=== PATIENT | female | born 2000 | race African-American/Black ===

== ENCOUNTER 2020-08-08 09:09 | Emergency (ER) | payer MEDICAID, SELFPAY ==
[2020-08-08 09:14] VITALS: BP 150/96; PULSE 117; RESP 14; TEMP 36.9; O2SAT 100
--- NOTE | 2020-08-08 09:19 | ED.GENADULT ---
HPI - General Adult General Chief complaint: Skin/Abscess/Foreign Body Stated complaint: itchy and red skin Time Seen by Provider: 08/08/20 09:19 Source: patient and RN notes reviewed Mode of arrival: ambulatory Limitations: no limitations History of Present Illness HPI narrative: 20-year-old -Congolese female presents with complains of diffused irregular skin color and darker and itching rash for the past 14 days. No treatment. Denies new changes in personal hygiene products or laundry detergent. No new foods or medications. No swelling, burning, bleeding, or drainage. Denies fever, chills, headaches, weakness, fatigue, myalgia, facial swelling, or tongue swelling. No rhinorrhea and congestion. Denies dry cough. Denies chest pain or dyspnea. Denies nausea, vomiting, or abdominal pain. Tolerating po intake well. Urine output within normal limits LMP 08/01/20. Remains active. The patient reports she have not been diagnosed with COVID-19. The patient reports she is not waiting for the results of a COVID-19 lab test. The patient reports she do not have fever, chills, or fatigue. The patient reports she do not have a worsening cough or shortness of breath. Denies chest pain. The patient reports she do not have any rhinorrhea, congestion, sore throat, loss of taste, nausea, vomiting, abdominal pain, and diarrheax. Tolerating po intake well. Denies recent traveling. Denies concerns for COVID-19 or exposures been home with limited outdoor exposure except for essential household needs, work, and return home. At this time, patient is not suspected of having COVID-19. Some parts of this dictation were generated by voice recognition software and may contain typographical and/or grammatical inaccuracies. Related Data Allergies Allergy/AdvReac Type Severity Reaction Status Date / Time No Known Allergies Allergy Verified 08/08/20 09:16 Review of Systems Review of Systems: Narrative: CONSTITUTIONAL: Denies fever, chills, sweats. EYES: Denies visual changes, redness, discharge. ENT: Denies rhinorrhea, congestion, sore throat, otalgia. CARDIOVASCULAR: Denies chest pain, palpitations, edema. RESPIRATORY: Denies dyspnea, wheezing, cough. GASTROINTESTINAL: Denies abdominal pain, nausea, vomiting, diarrhea. GENITOURINARY: Denies dysuria, hematuria, abnormal discharge. SKIN: Complains of diffused irregular skin color and darker and itching rash. MUSCULOSKELETAL: Denies acute back pain, joint pain, or myalgia. NEUROLOGIC: Denies numbness or focal weakness. PSYCHIATRIC: Denies anxiety or depression. All other systems reviewed are negative, except as documented in HPI and below. [facility] Past Medical History Medical History (Updated 08/09/20 @ 00:00 by Shila Helms) No significant past medical history Surgical History Surgical History (Updated 08/08/20 @ 09:39 by FABIEN Merchant) No significant past surgical history Family History Family History (Updated 08/08/20 @ 09:39 by FABIEN Merchant) Father Asthma Mother , Complications related to pneumonia No problems noted. Social History Social History (Updated 08/08/20 @ 09:40 by FABIEN Merchant) Smoking status: Former smoker Tobacco type: cigarettes Second hand tobacco smoke exposure: Yes Smoking end date: 04/12/20 Alcohol intake: current Substance use: never Living arrangements: with family Occupation/Education: occupation Gender identity (if verbalized by the patient): Female Comments At time of signature, agree with nurse past medical, surgical, social, and family history. There is no relevant family history pertinent to the presenting complaint. Exam Narrative: Exam Narrative: GENERAL: This is a well-nourished, well-developed patient, in no apparent distress. Talks in full sentences and ambulates with steady gait without dyspnea. HEAD: normocephalic, atraumatic. EYES: PERRL. Sclera clear/white. Visi
[2020-08-08 09:44] VITALS: BP 130/80
== END 2020-08-08 09:44 | disposition home or self-care (01) ==
PROVIDERS: Emergency Provider Nurse Practitioner Family
DX: L42 Pityriasis rosea (principal); F17.210 Nicotine dependence, cigarettes, uncomplicated
CPT/HCPCS: 99213; G0463

== ENCOUNTER 2022-01-20 11:57 | Emergency (ER) | payer OTHER, SELFPAY ==
--- NOTE | 2022-01-20 12:07 | ED.WOUNDLAC ---
HPI - Wound/Laceration General Chief Complaint: Wound/Laceration Stated Complaint: deep cut on left thumb Time Seen by Provider: 01/20/22 12:08 Source: patient, RN notes reviewed and old records reviewed Mode of arrival: ambulatory Limitations: no limitations History of Present Illness HPI narrative: 21 year old female who presents to [facility] care with complaints of laceration to the tip of her left thumb which occurred last night around 2100 when she was slicing tomatoes. Patient has 1cm curved laceration to the tip of her left thumb. Patient reports that she cleansed her thumb with liquid dial soap and rinsed well with water she then cleansed with peroxide and applied bandage to her left thumb, no active bleeding noted. Patient reports that she is college student and that her immunizations are up to date including her tetanus. Patient denies any fever or chills or sweats. Onset (ago): hour(s) (at 2100 last night) Location: other Extremity Location: Left: hand (left thumb) Place: home Context: accidental Treatments prior to arrival: bandage Related Data Home Medications Medication Instructions Recorded Confirmed norgestimate-ethinyl estradiol 1 tablet PO DAILY 01/20/22 01/20/22 [Tri-Sprintec (28)] Allergies Allergy/AdvReac Type Severity Reaction Status Date / Time No Known Allergies Allergy Verified 01/20/22 12:10 Review of Systems Review of Systems: CONSTITUTIONAL: Denies fever, chills, or sweats. EYES: Denies visual changes, redness, or discharge. ENT: Denies rhinorrhea, congestion, sore throat, or otalgia. CARDIOVASCULAR: Denies chest pain, palpitations, or edema. RESPIRATORY: Denies cough or dyspnea. GASTROINTESTINAL: Denies abdominal pain, nausea, vomiting, or diarrhea. GENITOURINARY: Denies dysuria or hematuria. SKIN: Denies rash or itching.1cm curved laceration to the tip of her left thumb MUSCULOSKELETAL: Denies back pain, joint pain, or myalgia. NEUROLOGIC: Denies headache, numbness, or weakness. PSYCHIATRIC: Denies anxiety or depression. All systems reviewed & are unremarkable except as noted in HPI and below PMFSH Past Medical History Medical History No significant past medical history Surgical History Surgical History No significant past surgical history Family History Family History Father Asthma Mother , Complications related to pneumonia No problems noted. Social History Social History Smoking status: Former smoker Tobacco type: cigarettes Second hand tobacco smoke exposure: Yes Smoking end date: 04/12/20 Alcohol intake: current Substance use: never Gender identity (if verbalized by the patient): Female Comments At time of signature, agree with nursing past medical, surgical, social and family history. There is no relevant family history pertinent to the presenting complaint Exam Narrative: GENERAL: Well-appearing, well-nourished, and in no acute distress. HEAD: Normocephalic, atraumatic. EYES: PERRLA and EOMI. ENT: Nares clear, no rhinorrhea or epistaxis. Mucous membranes moist.TM's normal with good light reflex, throat pink with no lesions or exudates or any tonsil enlargement. NECK: Supple. no lymphadenopathy CHEST: Clear to auscultation. No respiratory distress. HEART: Regular rate and rhythm. No murmur heard. Normal peripheral pulses. ABDOMEN: Soft, nontender, nondistended, normal active bowel sounds. EXTREMITIES: Normal range of motion. No edema. SKIN: Warm, dry, no rash. NEURO: No focal deficits. Alert and oriented x3. Course Course Level of Care: Express Care Visit Procedures Laceration left thumb tip: Date: 01/20/22 Time: 12:20 Site: hand (left thumb) Side (If applicable): left Size (c
[2022-01-20 12:11] VITALS: BP 141/108; PULSE 112; RESP 18; TEMP 36.6; O2SAT 99
[2022-01-20 12:14] VITALS: BP 141/108; PULSE 112; RESP 18; TEMP 36.6; O2SAT 99
[2022-01-20 12:45] VITALS: BP 142/100; PULSE 98; RESP 16
== END 2022-01-20 12:48 | disposition home or self-care (01) ==
PROVIDERS: Emergency Provider Registered Nurse
DX: S61.012A Laceration without foreign body of left thumb without damage to nail, initial encounter (principal); W26.0XXA Contact with knife, initial encounter; Y93.G1 Activity, food preparation and clean up; Z87.891 Personal history of nicotine dependence
CPT/HCPCS: 12001; 99213; G0463

== ENCOUNTER 2024-04-18 10:21 | Emergency (ER) | payer OTHER, SELFPAY ==
[2024-04-18] VITALS (12 sets, daily range): BP systolic 146–184; BP diastolic 109–126; PULSE 87–137; RESP 11–20; TEMP 36.7; O2SAT 99–100
--- NOTE | ~2024-04-18 | CT_ITS ---
EXAMINATION: CT abdomen pelvis w con DATE: 04/18/2024 11:57 INDICATION: Right upper quadrant abdominal pain. Constipation. TECHNIQUE: Computed tomography (CT) of the abdomen and pelvis was performed with 100 mL Omnipaque 350 intravenous contrast. Automated exposure control and iterative reconstruction technique were employe d. The dose-length product was 338.98 mGy-cm. COMPARISON: None. FINDINGS: The visualized portions of the lung bases demonstrate mild atelectasis. No pleural effusion . The heart size is normal. No pericardial effusion. There is a 9 mm hyperdense mass in right hepatic lobe, likely a hemangioma or focal nodular hyperplasia. The gallbladder and spleen are normal. There is fat stranding around the head of the pancreas and second portion of the duodenum. The adrenal gla nds and kidneys are normal. The bladder is distended. There are no dilated loops of bowel. The append ix is normal. There are no pathologically enlarged lymph nodes. There is physiologic fluid in the pel vis. There is mild lumbar spondylosis. IMPRESSION: 1. Fat stranding around the head of the pancreas and second portion of the duodenum, consistent with pancreatitis versus duodenitis. Reviewed, dictated and finalized at location A. IMPRESSION: 1. Fat stranding around the head of the pancreas and second portion of the duod enum, consistent with pancreatitis versus duodenitis.
--- NOTE | 2024-04-18 10:45 | ED.ABDPAIN ---
HPI - Abdominal Pain General Chief Complaint: Abdominal Pain Stated Complaint: abdominal pain, constipation Time Seen by Provider: 04/18/24 10:34 Source: patient Mode of arrival: ambulatory Limitations: no limitations History of Present Illness HPI narrative: Jennifer is a 23-year-old female patient presenting to the emergency room today with complaints of right upper quadrant abdominal pain with constipation. States she has not had a bowel movement 3 days. Symptoms started 3 days ago. She denies any associated nausea or vomiting. Pain is sharp in the right upper quadrant rating it 4/5. She denies any urinary symptoms. No fever no chills no body aches. She is sexually active. Last menstrual period was March 21. Related Data Allergies Allergy/AdvReac Type Severity Reaction Status Date / Time No Known Allergies Allergy Verified 04/18/24 13:57 Review of Systems Review of Systems: Pertinent positives per HPI. Patient denies any fever, chills, rash, headache, visual changes, dizziness, cough, runny nose, sore throat, shortness of breath, chest pain, palpitations, nausea, vomiting, diarrhea, constipation, or any urinary issues. PMFSH Past Medical History Medical History No significant past medical history Surgical History Surgical History No significant past surgical history Family History Family History Father Asthma Mother , Complications related to pneumonia No problems noted. Social History Social History Smoking status: Former smoker Tobacco type: cigarettes Second hand tobacco smoke exposure: Yes Smoking end date: 04/12/20 Alcohol intake: current Substance use: never Living arrangements: with family Occupation/Education: occupation Gender identity (if verbalized by the patient): Female Comments At the time of my signature, I reviewed and agree with the nursing past medical, surgical, social, and family history. There is no relevant family history pertinent to the patient complaint. Exam Narrative: General: Well-developed, well nourished, in no apparent distress. Head: Normocephalic, atraumatic. Cardio: Regular rate and rhythm, s1 and s2 normal, no murmur appreciated. Resp: Clear to auscultation bilaterally, no rhonchi, rales, wheezing or rubs. Abdomen: Soft, pliable, bowel sounds present in all quadrants, RUQ tender to palpation, no organomegly, no CVAT tenderness. Course Course Emergency Course: Portions of this record may have been created with voice recognition software. Vital Signs Vital signs: Vital Signs Temperature 36.7 C 04/18/24 10:27 Pulse Rate 137 H 04/18/24 10:27 Respiratory Rate 20 04/18/24 10:27 Blood Pressure 178/124 H 04/18/24 10:27 Pulse Oximetry 99 04/18/24 10:27 Oxygen Delivery Room Air 04/18/24 10:27 Temperature 36.7 C 04/18/24 10:27 Pulse Rate 87 04/18/24 14:31 Respiratory Rate 16 04/18/24 14:31 Blood Pressure 146/112 H 04/18/24 14:31 Pulse Oximetry 100 04/18/24 14:31 Oxygen Delivery Room Air 04/18/24 10:27 Vital signs reviewed MDM - Abdominal Pain MDM Narrative Medical decision making narrative: At the time of visit patient is resting comfortably on the exam table. Patient appears to be nontoxic. Labs: CBC shows white blood cell count of 15.2, H&H of 12.9 and 38.9, platelet counts 232, chemistry shows sodium of 138, potassium 3.0, chloride 105,BUN is 6, carbon dioxide 22, GFR is greater than 60, glucose is 112, AST is 51, ALT is 57, lipase is 238, urinalysis shows 1+ blood with a trace of leukocytes with no bacteria seen Diagnostics: CT shows pancreatitis versus duodenitis Medications given: Morphine 4 mg IV, Zofran 4mg IV, NS 1 liter. 5 mg o
[2024-04-18] MEDS: ONDANSETRON INJ 4 MG/2 ML VIAL IV PUSH (10:56)
[2024-04-18] MEDS: MORPHINE SULFATE (*CRX) 4 MG/ML INJ IV PUSH (10:56)
[2024-04-18] MEDS: SODIUM CHLORIDE 0.9% IV 1,000 ML 999 ML IV CONT (10:57)
[2024-04-18 11:11] LABS: Basophils Percent Auto 0.3 % (0.2-1.2); Eosinophils Absolute Auto 0.2 K/mm3 (0-0.3); Eosinophils Percent Auto 1.1 % (0-4.4); Hematocrit 38.9 % (37.0-47.0); Hemoglobin 12.9 g/dL (12.0-15.0); Immature Granulocyte Absolute 0.03 K/mm3 (0.00-0.031); Immature Granulocyte Percent A 0.2 % (0-0.5); Lymphocytes Absolute Auto 4.33 K/mm3 (0.9-3.2); Lymphocytes Percent Auto 28.5 % (18.3-44.2); Mean Corpuscular HGB Conc 33.2 g/dl (32-36); Mean Corpuscular Hemoglobin 33.3 pg (26-34); Mean Corpuscular Volume 100.5 fl (80-100); Mean Platelet Volume 11.5 fl (7.4-10.4); Monocytes Absolute Auto 1.2 K/mm3 (0.1-0.6); Neutrophils Absolute Auto 9.4 K/mm3 (1.3-6.7); Neutrophils Percent Auto 61.9 % (45.5-73.1); Platelet Count Result 232 k/mm3 (150-375); Red Blood Count 3.87 M/mm3 (4.2-5.4); Red Cell Distribution Width 12.4 % (11.5-14.5); White Blood Count 15.2 K/mm3 (4.5-10.0)
[2024-04-18 11:18] LABS: Appearance Urine Clear (Clear); Bacteria Urine None Seen /hpf; Bilirubin Urine Negative (Negative); Blood Urine 1+ (Negative); Color Urine Yellow (Yellow); Glucose Urine UA Negative (Negative); Ketones Urine Negative (Negative); Leukocyte Esterase Ur Trace LEU/UL (Negative); Nitrate Urine Negative (Negative); Non Pathogenic Casts 0-2; Protein Urine Negative (Negative); RBC Urine 0-2 /hpf (0-2); Specific Grav Ur 1.007 (1.001-1.035); Squamous Epithelial Cell Urine Occasional /hpf (Few); Urobilinogen Urine 0.2 mg/dL (<2.0); WBC Urine 0-5 /hpf (0-3)
[2024-04-18 11:23] LABS: Add Urine Microscopic? YES
[2024-04-18 11:35] LABS: Alanine Aminotransferase 57 U/L (6-35); Alkaline Phosphatase 74 U/L (38-126); Anion Gap 11 mmol/L (4-12); Aspartate Amino Transferase 51 U/L (14-36); Bilirubin,Total 1.3 mg/dL (0.2-1.3); Blood Urea Nitrogen 6 mg/dL (7-17); Calcium 9.4 mg/dL (8.4-10.2); Carbon Dioxide 22 mmol/L (22-30); Chloride 105 mmol/L (98-107); Estimated CRCL calculation 91 ml/min; Estimated Glomerular Filt Rate > 60; Glucose 112 mg/dL (65-110); Lipase 238 U/L (23-300); Sodium 138 mmol/L (137-145)
[2024-04-18] MEDS: METOPROLOL TARTRATE INJ 5 MG/5 ML VIAL IV PUSH (13:50)
== END 2024-04-18 14:45 | disposition home or self-care (01) ==
PROVIDERS: Emergency Medicine; Emergency Provider Nurse Practitioner Family
DX: R10.11 Right upper quadrant pain (principal); K29.80 Duodenitis without bleeding; I10 Essential (primary) hypertension
CPT/HCPCS: 36415; 74177; 80053; 81001; 81025; 83690; 85025; 96361; 96374; 96375; 99284; J2270; J2405; J7030; Q9967

== ENCOUNTER 2024-07-07 10:42 | Emergency (ER) | payer OTHER, SELFPAY ==
--- NOTE | ~2024-07-07 | CT_ITS ---
EXAMINATION: CT abdomen pelvis w con DATE: 07/07/2024 14:24 INDICATION: Abdominal pain. TECHNIQUE: Computed tomography (CT) of the abdomen and pelvis was performed with 100 mL Omnipaque 350 intravenous contrast. Automated exposure control and iterative reconstruction technique were employe d. The dose-length product was 270.34 mGy-cm. COMPARISON: CT abdomen and pelvis 04/18/24 FINDINGS: The visualized portions of the lung bases are clear without pneumonia or pleural effusion. The heart is normal. No pericardial effusion. The liver, gallbladder, spleen, are normal. There is fa t stranding around the duodenum and head of the pancreas. There are areas of low attenuation in the h ead of the pancreas. The adrenal glands and kidneys are normal. There are no dilated loops of bowel. The appendix is normal. There is a small volume of pelvic ascites. Peritoneal enhancement suggests an exudate. There are no pathologically enlarged lymph nodes. There is mild thoracolumbar spondylosis. IMPRESSION: 1. Acute necrotic pancreatitis. 2. Small volume of pelvic ascites. Reviewed, dictated and finalized at location A.
[2024-07-07 10:54] VITALS: BP 163/127; PULSE 124; RESP 16; TEMP 36.9; O2SAT 100
[2024-07-07 12:49] VITALS: BP 161/125; PULSE 125; RESP 16; O2SAT 99
--- NOTE | 2024-07-07 12:52 | ECG_ITS ---
Test Date: 2024-07-07 13:08:57 Measurements Intervals [place] Rate: 110 P: 67 AR: 126 QRS: 40 QRSD: 74 T: 24 QT: 316 QTc: 428 Interpretive Statements SINUS TACHYCARDIA LEFT ATRIAL ENLARGEMENT [-0.15mV P-WAVE IN V1/V2] No previous ECG available for comparison Electronically Signed On 07-08-2024 15:25:49 CDT by Milan Gonzáles M.D.
[2024-07-07 12:59] LABS: BEDSIDEPREGUCG Negative
--- NOTE | 2024-07-07 13:09 | ED.ABDPAIN ---
HPI - Abdominal Pain General Chief Complaint: Abdominal Pain <Shari Berkowitz APRN - Last Filed: 07/07/24 19:34> Stated Complaint: abd pain, vomiting <Shari Berkowitz APRN - Last Filed: 07/07/24 19:34> Time Seen by Provider: 07/07/24 12:43 <Shari Berkowitz APRN - Last Filed: 07/07/24 19:34> Source: patient <Shari Mendoza Berkowitz APRN - Last Filed: 07/07/24 19:34> Mode of arrival: ambulatory <Sharichioma Berkowitz APRN - Last Filed: 07/07/24 19:34> Limitations: no limitations <Shari Berkowitz APRN - Last Filed: 07/07/24 19:34> History of Present Illness HPI narrative: Pt is a 24-year-old female who presents to the ER with generalized abdominal pain. She reports the pain started on Sunday. Pt reports she hasn't had a bowel movement since Sunday, she has vomited twice, and endorses lower abdominal pain that is worse than upper abdominal pain. She has a history of HTN and takes medication to treat it, but pt didn't take her medication this morning. Pt reports her last menstrual period was on April 16, 2024. She doesn't have concerns for STDs, but would like to be tested. Pt reports she thinks she is dehydrated and he has not been passing gas. She has no other signs or symptoms of sickness. Pt denies chest pain, shortness of breath, or bloody stools. <Shari Berkowitz APRN - Last Filed: 07/07/24 19:34> Related Data Allergies/Adverse Reactions: Allergies Allergy/AdvReac Type Severity Reaction Status Date / Time No Known Allergies Allergy Verified 04/18/24 13:57 <Shari Berkowitz APRN - Last Filed: 07/07/24 19:34> Review of Systems Review of Systems: All systems reviewed & are unremarkable except as noted in HPI and below <Shari Berkowitz APRN - Last Filed: 07/07/24 19:34> PMFSH Past Medical History Medical History: Medical History No significant past medical history <Shari Berkowitz APRN - Last Filed: 07/07/24 19:34> Surgical History Surgical History: Surgical History No significant past surgical history <Shari Berkowitz APRN - Last Filed: 07/07/24 19:34> Family History Family History: Family History Father Asthma Mother , Complications related to pneumonia No problems noted. <Shari Berkowitz APRN - Last Filed: 07/07/24 19:34> Social History Social History: Social History Smoking status: Former smoker Tobacco type: cigarettes Second hand tobacco smoke exposure: Yes Smoking end date: 04/12/20 Alcohol intake: current Substance use: never Living arrangements: with family Occupation/Education: occupation Gender identity (if verbalized by the patient): Female <Shari Berkowitz APRN - Last Filed: 07/07/24 19:34> Exam Narrative: GENERAL: Well-appearing, well-nourished and in no acute distress. NECK: Supple, normal range of motion, no JVD. No lymphadenopathy. CARDIAC: Regular rate and rhythm without murmurs, rubs or gallops. RESPIRATORY: Clear to auscultation bilaterally. No wheezes, rales or rhonchi. ABDOMEN: Soft, tender in all quadrants, hypoactive/normoactive bowel sounds throughout all quadrants, guarding and positive for rebound tenderness. No masses appreciated. EXTREMITIES: Normal range of motion, no swelling, clubbing or other deformities. NEUROLOGICAL: Cranial nerves II through XII grossly intact, no focal deficits noted. Normal gait, normal speech. SKIN: Warm, dry, normal color, no rashes, no lesions. <Shari Berkowitz APRN - Last Filed: 07/07/24 19:34> Course CASE MANAGEMENT COORDINATOR/PA Physician Supervision For this patient encounter, I reviewed the CASE MANAGEMENT COORDINATOR or PA documentation, treatment plan, and medical decision making and had [id number] time with th
[2024-07-07 13:13] LABS: Basophils Absolute Auto 0.1 K/mm3 (0.0-0.1); Basophils Percent Auto 0.2 % (0.2-1.2); Eosinophils Absolute Auto 0.1 K/mm3 (0-0.3); Eosinophils Percent Auto 0.3 % (0-4.4); Hematocrit 41.7 % (37.0-47.0); Hemoglobin 14.4 g/dL (12.0-15.0); Immature Granulocyte Absolute 0.18 K/mm3 (0.00-0.031); Immature Granulocyte Percent A 0.8 % (0-0.5); Lymphocytes Absolute Auto 1.93 K/mm3 (0.9-3.2); Lymphocytes Percent Auto 8.6 % (18.3-44.2); Mean Corpuscular HGB Conc 34.5 g/dl (32-36); Mean Corpuscular Volume 98.6 fl (80-100); Mean Platelet Volume 10.6 fl (7.4-10.4); Monocytes Absolute Auto 2.1 K/mm3 (0.1-0.6); Monocytes Percent Auto 9.4 % (2.6-8.5); Neutrophils Absolute Auto 18.1 K/mm3 (1.3-6.7); Neutrophils Percent Auto 80.7 % (45.5-73.1); Platelet Count Result 321 k/mm3 (150-375); Red Blood Count 4.23 M/mm3 (4.2-5.4); Red Cell Distribution Width 14.1 % (11.5-14.5); White Blood Count 22.5 K/mm3 (4.5-10.0)
[2024-07-07] MEDS: SODIUM CHLORIDE 0.9% IV 1,000 ML 999 ML IV CONT ×2 (13:18→13:38)
[2024-07-07] MEDS: ONDANSETRON INJ 4 MG/2 ML VIAL IV PUSH (13:18)
[2024-07-07] MEDS: ACETAMINOPHEN 500 MG TABLET 1000 MG PO (13:18)
[2024-07-07] MEDS: FAMOTIDINE 20 MG/2 ML VIAL IV PUSH (13:18)
[2024-07-07 13:27] LABS: Alanine Aminotransferase 42 U/L (6-35); Alkaline Phosphatase 70 U/L (38-126); Anion Gap 15 mmol/L (4-12); Aspartate Amino Transferase 39 U/L (14-36); Bilirubin,Total 1.4 mg/dL (0.2-1.3); Blood Urea Nitrogen 6 mg/dL (7-17); Calcium 9.6 mg/dL (8.4-10.2); Carbon Dioxide 22 mmol/L (22-30); Chloride 95 mmol/L (98-107); Estimated CRCL calculation 90 ml/min; Estimated Glomerular Filt Rate > 60; Glucose 132 mg/dL (65-110); Lipase 714 U/L (23-300); Potassium 3.3 mmol/L (3.4-5.0); Sodium 132 mmol/L (137-145)
[2024-07-07 13:34] LABS: Creatine Kinase 107 U/L (30-135)
[2024-07-07 13:40] LABS: Add Urine Microscopic? YES; Appearance Urine Cloudy (Clear); Bacteria Urine 1+ /hpf; Bilirubin Urine 2+ (Negative); Blood Urine 2+ (Negative); Color Urine Dark Yellow (Yellow); Glucose Urine UA Negative (Negative); Ketones Urine 1+ mg/dL (Negative); Leukocyte Esterase Ur Negative LEU/UL (Negative); Need Manual Microscopic Reviewed; Nitrate Urine Negative (Negative); Protein Urine 2+ mg/dL (Negative); RBC Urine 21-50 /hpf (0-2); Specific Grav Ur 1.023 (1.001-1.035); Squamous Epithelial Cell Urine Few /hpf (Few); WBC Urine 21-50 /hpf (0-3); White Blood Cell Casts Urine Present /lpf
[2024-07-07 13:49] LABS: Beta HCG Quantitative < 2.39 mIU/ML
[2024-07-07 13:59] LABS: Influenza A QL RT-PCR Negative (Negative); Influenza B QL RT-PCR Negative (Negative); RSV RNA, RT-PCR Negative (Negative); SARS-CoV-2 RNA PCR Negative (Negative)
[2024-07-07 14:01] LABS: Lactic Acid Reflex 1.2 mmol/L (0.7-2.0)
[2024-07-07 14:13] LABS: INR 1.1; Partial Thromboplastin Time 25.6 Seconds (22.3-36.8); Prothrombin Time 14.7 Seconds (11.1-14.7)
[2024-07-07 14:28] LABS: CRP 16.4 mg/dL (<1.0)
[2024-07-07] MEDS: metroNIDAZOLE 500 MG/ISO 100ML 500 MG/100 ML BAG 100 MG IVPB (14:31)
[2024-07-07 15:16] LABS: Trichomonas Vag PCR NOT DETECTED (NOT DETECTE)
[2024-07-07 15:41] LABS: Chlamydia trachomatis NOT DETECTED (NOT DETECTE); Neisseria gonorrhoeae PCR NOT DETECTED (NOT DETECTE)
[2024-07-07 15:45] VITALS: BP 154/117; PULSE 100; RESP 18; O2SAT 100
[2024-07-07] MEDS: MORPHINE SULFATE (*CRX) 4 MG/ML INJ IV PUSH (16:16)
[2024-07-07 17:01] VITALS: BP 156/114; PULSE 101; RESP 20; O2SAT 100
--- NOTE | 2024-07-07 17:36 | PC.NURSE ---
spoke to [facility] transfer center at this time for a triage assessment. no bed at this time
[2024-07-07] MEDS: amLODIPine BESYLATE 5 MG TABLET PO (18:21)
[2024-07-07] MEDS: SODIUM CHLORIDE 0.9% IV 1,000 ML 150 ML IV CONT (18:21)
[2024-07-07 18:24] VITALS: BP 159/112; PULSE 95; RESP 15; TEMP 37; O2SAT 100
[2024-07-07 20:01] LABS: Triglycerides 98 mg/dL (<150)
[2024-07-07 20:10] LABS: Immunoglobulin A 97 mg/dL (70-400); Immunoglobulin G 957 mg/dL (700-1600); Immunoglobulin M 43 mg/dL (40-230)
[2024-07-07] MEDS: MORPHINE SULFATE (*CRX) 2 MG/ML INJ IV PUSH (21:50)
[2024-07-07 21:52] VITALS: BP 157/111; PULSE 104; RESP 18; TEMP 37; O2SAT 100
--- NOTE | 2024-07-07 22:47 | PC.NURSE ---
spoke to [facility] at this time to give an update on the pt status. [place] has no beds at this time
--- NOTE | 2024-07-07 23:25 | PC.NURSE ---
Assumed care of pt from YURIDIA Zee @ [phone]
[2024-07-08] VITALS (7 sets, daily range): BP systolic 144–162; BP diastolic 102–120; PULSE 106–129; RESP 16–20; TEMP 36.6; O2SAT 97–100
[2024-07-08] MEDS: MORPHINE SULFATE (*CRX) 4 MG/ML INJ IV PUSH (02:36)
[2024-07-08] MEDS: MORPHINE SULFATE (*CRX) 2 MG/ML INJ IV PUSH (08:08)
[2024-07-08] MEDS: amLODIPine BESYLATE 5 MG TABLET PO (10:33)
--- NOTE | 2024-07-08 11:42 | PC.NURSE ---
Received phone call from [facility] transfer center, updated them with pt's vitals and condition. No beds at this time.
--- NOTE | 2024-07-08 16:48 | PC.NURSE ---
[id number] called rachelle still on wait list to be moved [id number] called kamini still on wait list to be moved
--- NOTE | 2024-07-08 17:36 | PC.NURSE ---
[id number] slu called with bed for room 7. bed number [id number] mena nurse to nurse at [phone]
--- NOTE | 2024-07-08 18:36 | PC.NURSE ---
Report called to [facility] and given to YURIDIA Peterson.
== END 2024-07-08 20:37 | disposition short-term general hospital (02) ==
PROVIDERS: Registered Nurse; Emergency Provider Emergency Medicine
DX: K85.90 Acute pancreatitis without necrosis or infection, unspecified (principal); Z20.822 Contact with and (suspected) exposure to COVID-19
CPT/HCPCS: 36415; 74177; 80053; 81001; 81025; 82550; 82784; 83605; 83690; 84478; 84702; 85025; 85610; 85730; 86140; 87040; 87086; 87491; 87591; 87637; 87661; 93005; 96361; 96365; 96367; 96374; 96375; 96376; 99285; A9270; J0696; J1836; J2270; J2405; J7030; Q9967

== ENCOUNTER 2025-06-29 07:41 | Observation (INO) | payer OTHER, SELFPAY ==
[2025-06-29] VITALS (22 sets, daily range): BP systolic 125–153; BP diastolic 85–115; PULSE 91–123; RESP 14–20; TEMP 36.5–37.2; O2SAT 98–100; BMI 25.6
--- NOTE | ~2025-06-29 | MR_ITS ---
EXAMINATION: MR MRCP wo/w con/w 3D wo ind DATE: 06/30/2025 12:28 INDICATION: Abdominal pain. Elevated liver function tests. TECHNIQUE: Magnetic resonance imaging (MRI) of the abdomen was performed without and with 13 mL Multihance intravenous contrast. Sequences included coronal T2- weighted SS-FSE, coronal T2-weighted FS SS-FSE, coronal T2-weighted FS FIESTA, axial T2-weighted FS FIESTA, axial T2-weighted FIESTA, sagittal T2-weighted SS- FSE, axial T1-weighted dual-echo FSPGR, axial T2-weighted SS-FSE, axial T1- weighted LAVA, axial T2-weighted STIR FSE. Thick-slab T2-weighted FRFSE-XL images were obtained for magnetic resonance cholangiopancreatography (MRCP). Rotating maximum intensity projection 3-D reconstructions of the volumetric data were created by the technologist. Postcontrast sequences included a time course of axial T1-weighted LAVA. COMPARISON: CT dated 07/07/2024 and 04/18/2024 FINDINGS: Heart size is normal. No pericardial or pleural effusion. Small amount of focal hepatic steatosis at the ligamentum teres. Gallbladder, spleen, bilateral adrenal glands and kidneys are normal. There is a relatively abrupt transition in the mid common bile duct approximately 4 cm from the ampulla from a mildly dilated proximal duct which measures up to 10 mm to a normal caliber distal duct measures 1-2 mm. No intrahepatic biliary ductal dilation. No cholelithiasis or choledocholithiasis. There is dilation of the main pancreatic duct at the body and tail the pancreas with multiple tiny pancreatic ductal side branches. Similarly there is abrupt narrowing of the main pancreatic duct in the region of the neck of the pancreas where it becomes essentially indiscernible. The distalmost main pancreatic duct can be seen at its confluence with the common bile duct where it measures up to 1.5 mm in diameter. Within the head of the pancreas near the site of the abrupt narrowing of the main pancreatic duct are a couple nonenhancing, mildly T2 hyperintense cystic lesions, the larger measuring 10 x 8 mm and the smaller measuring up to 5 mm in maximal diameter. These correspond in size and location to the small regions of necrosis identified on the CT dated 07/07/2024 which were new since the study from 2 months prior on 04/18/2024 and consistent with sequela of now chronic necrotic pancreatitis. There is subtle edema surrounding the head of the pancreas and adjacent duodenum suspicious for mild recurrent acute interstitial pancreatitis. Visualized bowels are unremarkable with no obstruction. No pathologically enlarged abdominal or upper pelvic lymphadenopathy. Bones are unremarkable with normal marrow signal throughout. IMPRESSION: 1. Dilation of the proximal common bile duct without intrahepatic biliary ductal dilation as well as of the main pancreatic duct in the body and tail the pancreas. Both demonstrate abrupt transition to narrow ducts in the region of the head of the pancreas where there is a heterogeneous appearance to the head of the pancreas including a couple small nonenhancing cystic appearing regions which appears similar to study from 07/07/2024. These developed coincident with an episode of acute pancreatitis in the short interval since 04/18/2024 which would argue against malignancy and favor sequela of now chronic necrotic pancreatitis. No evident cholelithiasis/choledocholithiasis and the abrupt transition points likely reflect strictures related to the chronic pancreatitis. 2. Mild edema surrounding the head of the pancreas suspicious for recurrent acute interstitial pancreatitis. Reviewed, dictated and finalized at location A. IMPRESSION: 1. Dilation of the proximal common bile duct without intrahepatic biliary ducta l dilation as well as of the main pancreatic duct in the body and tail the panc reas. Both demonstrate abrupt transition to narrow ducts in the region of the h ead of the pancreas where there is a heterogeneous appearance to the head of th e pancreas including a couple small nonenhancing cystic appearing regions which appears similar to study from 07/07/2024. These developed coincident with an ep isode of acute pancreatitis in the short interval since 04/18/2024 which would ar francisca against malignancy and favor sequela of now chronic necrotic pancreatitis. No evident cholelithiasis/choledocholithiasis and the abrupt transition points likely reflect strictures related to the chronic pancreatitis. 2. Mild edema surrounding the head of the pancreas suspicious for recurrent acu te interstitial pancreatitis.
--- NOTE | ~2025-06-29 | US_ITS ---
EXAM: US abdomen limited - 06/29/2025 9:55 CDT History: 25 years old Female with elevated LFT TECHNIQUE: Ultrasound of the abdomen was performed. COMPARISON: None available. FINDINGS: LIVER: Normal echogenicity. The liver is normal in size. No discrete liver masses are noted. INTRAHEPATIC BILE DUCTS: Nondilated. COMMON BILE DUCT: 7 mm. Normal caliber. GALLBLADDER: Gallbladder sludge seen. No wall thickening or surrounding fluid. PANCREAS: Not visualized due to obscuration by overlying bowel gas. ASCITES: None. OTHER: Patient IVC IMPRESSION: Gallbladder sludge . Reviewed, dictated and finalized at location A. IMPRESSION: Gallbladder sludge .
--- OUTSIDE RECORDS SUMMARY | 2025-06-29 07:43 | XMS_ITS | Clinical Summary ---
Author Organization [facility] [address] Address [address] [place] [id number] Care Team Providers Care Safety Investigator Name Role Phone Krzysztof Phillips MD Primary Care Provider [phone] Allergies No known active allergies Medications norgestimate-ethi nyl estradiol (TRI-SPRINTEC, 28, ORAL) Take by mouth Active hydrocortisone 2.5 % creamIndications: Skin Inflammation Apply topically 2 (two) times a day 28 g 1 3 Active amLODIPine (NORVASC) 2.5 mg tabletIndications :Elevated blood pressure reading Take 1 tablet (2.5 mg total) by mouth daily 30 tablet 2 3 Active Active Problems Problem Noted Date Diagnosed Date Elevated blood pressure reading 09/27/2023 Encounter for medical examination to establish c are 05/04/2023 Assessment & Plan (05/04/2023 2:25 PM CDT): A(n) initial well visit to establish care has been performed today. Jennifer Viera is not up to date on screening tests. She is in need of Cholesterol screening. She is not up to date on needed preventative vaccinations; She is in need of Tdap/Td, Pneumonia (Prevnar-13 or Pneumovax-23), HPV, and Meningococcal. We discussed healthy lifestyle habits, educational material has been given. Medications reviewed, changes documented as per the medical record and discussed with patient along with risks vs benefits. Return in 1 year Eczema 05/02/2023 Immunizations Immunization Administration Dates Next Due DTaP 08/12/2003,07/12/2001,1999 ,1999 HPV, Bivalent 07/09/2014 HPV, Quadrivalent 06/27/2010 HPV, Unspecified 03/18/2014 HPV9 07/15/2015 Hep A, Ped Unspecified 06/27/2010 Hep A, Pediatric 07/09/2014 Hep B, Adolescent or Pediatric 1999,1998 Hep B, Unspecified 07/12/2001,1999 IPV 08/12/2003,07/12/2001,1999 ,1999 Influenza, Unspecified 11/12/2022(Deferr ed: Patient Refused),11/12/2021(Deferred: Patient Refused) MMR 08/12/2003,07/12/2001 Meningococcal MCV4, Unspecified 06/27/2010 Meningococcal MCV4P (Menactra) 07/15/2015 Tdap 06/27/2010 Varicella 06/29/2010,08/12/2003 Medical History Medical History Date Comments Eczema Family History Medical History Relation Name Comments Asthma Brother Asthma Father Eczema Father No Known Problems Maternal Grandfather No Known Problems Maternal Grandmother No Known Problems Mother No Known Problems Paternal Grandfather Asthma Paternal Grandmother Hypertension Paternal Grandmother Relation Name Status Comments Brother Alive Father Alive Maternal Grandfather Maternal Grandmother Mother Paternal Grandfather Paternal Grandmother Alive Sister 1 Alive Sister 2 Alive Social History Tobacco Use Types Packs/Day Years Used Date Smoking Tobacco: Never Smokeless Tobacco: Never AUDIT-C Answer Date Recorded Q1: How often do you have a drink containing alc ohol? 2-3 times a week 09/27/2023 Q2: How many drinks containi ng alcohol do you have on a typical day when you are drinking? 5 or 6 09/27/2023 Q3: How often do you have si x or more drinks on one occasion? Weekly 09/27/2023 PHQ-2 Answer Date Recorded PHQ-2 Total Score (If total score is 3 or more points, staff should administer the PHQ-9) 0 05/02/2023 Exercise Vital Sign Answer Date Recorde d On average, how many days pe r week do you engage in moderate to strenuous exercise (like a brisk walk)? 4 days 09/27/2023 On average, how many minutes do you engage in exercise at this level? 40 min 09/27/2023 Personal Safety Answer Date Recorded Getting School Help Needed Not on file 10/27 Education Answer Date Recorded What is the highest level of school you have completed or the highest degree you have received? 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 Not on file Not on file Obstetrics History Last Filed Vital Signs Vital Sign Reading Time Taken Comments Blood Pressure 142/94 09/27/2023 9:52 AM JOURNEYMAN MACHINIST Pulse 105 09/27/2023 9:52 AM JOURNEYMAN MACHINIST Temperature 36.1 C (97 F) 09/27/2023 9:40 AM JOURNEYMAN MACHINIST Respiratory Rate 17 09/27/2023 9:40 AM JOURNEYMAN MACHINIST Oxygen Saturation 98% 09/27/2023 9:52 AM JOURNEYMAN MACHINIST Inhaled Oxygen Concentration - - Weight 67.1 kg (148 lb) 09/27/2023 9:40 AM JOURNEYMAN MACHINIST Height 152.4 cm (5') 09/27/2023 9:40 AM JOURNEYMAN MACHINIST Body Mass Index 28.9 09/27/2023 9:40 AM JOURNEYMAN MACHINIST Plan of Treatment Health Maintenance Due Date Last Done Comments Cervical Cancer Screening 1999 Hepatitis C Screening 1999 DTaP/Tdap/Td Vaccine (6 - Td or Tdap) 06/27/2020 06/27/2010, 08/12/2003, 07/12/2001, Additional history exists Depression Screening 05/02/2024 05/02/2023 Regular Well Visit/Exam 18-64 05/02/2024 05/02/2023 Influenza Vaccine (#1) 2025 Hepatitis B Screening Completed 07/12/2001 , 1999, 1999, Additional history exists Varicella Vaccines Completed 06/29/2010, 08/12/2003 HPV Vaccines Completed 07/15/2015, 06/13, 03/18/2014, Additional history exists Pneumococcal vaccine <65 Aged Out No longer eligible based on patient's age to complete this topic Insurance AETNA BETTER [facility] AETNA BETTER [facility] Care Teams Safety Investigator Relationship Specialty Start Date End Date Krzysztof Phillips MD [address] [place] [address] [address] [place] [address] PCP - General Family Medicine 05/02/23
--- OUTSIDE RECORDS SUMMARY | 2025-06-29 07:44 | XMS_ITS | Clinical Summary ---
Author Organization [facility] [employer] Address [address] [place] [address] Care Team Providers Care Clinical Product Manager Name Role Phone Krzysztof Phillips MD Primary Care Provider [phone] Source Comments [facility],non-owned Affiliates and Associated Physician Practices is amultiple site organization consisting of ambulatory clinics and hospital sitesin [place], [place], [place] and [place]. This disclosure is being madepursuant to the Care Everywhere program and may not contain all information available regarding this patient. Last updated 18.[facility] Allergies Active Allergy Reactions Criticality Noted Date Comments Peanut-Derived Anaphylaxis High 07/08/2024 Sesame Oil Rash Medium 07/08/2024 Medications * Be aware that medications may not be up to date on this document. Alwaysverify current medications with the patient. amLODIPine (Norvasc) 10 MG tabletIndicatio ns:Hypertension Take 1 (one) tablet by mouth once daily for 30 days Reasons: High Blood Pressure Disorder 30 tablet 07/11/2024 Active Active Problems Problem Noted Date Diagnosed Date Necrotizing pancreatitis 07/07/2024 Social History Tobacco Use Types Packs/Day Years Used Date Smoking Tobacco: Never Smokeless Tobacco: Never Tobacco Cessation:Counseling Given: Yes Alcohol Use Standard Drinks/Week Comments Yes 0 (1 standard drink = 0.6 oz pur e alcohol) AUDIT-C Answer Date Recorded Q1: How often do you have a drink containing alcohol? 4 or more times a week 07/08/2024 Q2: How many drinks containi ng alcohol do you have on a typical day when you are drinking? 5 or 6 Q3: How often do you have si x or more drinks on one occasion? Weekly 07/08/2024 Overall Financial Resource Strain (CARDIA) Answe r Date Recorded How hard is it for you to pa y for the very basics like food, housing, medical care, and heating? Not hard at all 07/08/2024 [facility] [place] of Occupat ional Health - Occupational Stress Questionnaire Answer Date Recorded Do you feel stress - tense, restless, nervous, or anxious, or unable to sleep at night because your mind is troubled all the time - these days? Only a little 07/08/2024 Hunger Vital Sign Answer Date Recorded Within the past 12 months, y ou worried that your food would run out before you got the money to buy more. Never true 07/08/20 24 Within the past 12 months, t he food you bought just didn't last and you didn't have money to get more. Never true 07/08/2024 PRAPARE - Transportation Answer Date Re corded In the past 12 months, has l ack of transportation kept you from medical appointments or from getting medications? No 06/13 In the past 12 months, has l ack of transportation kept you from meetings, work, or from getting things needed for daily living? No 07/08/2024 Housing Stability Vital Sign Answer Pedro e Recorded In the last 12 months, was t here a time when you were not able to pay the mortgage or rent on time? No 07/08/2024 In the last 12 months, how many places have you lived? 1 07/08/2024 In the last 12 months, was t here a time when you did not have a steady place to sleep or slept in a fpc (including now)? No 07/08/2024 Comments Unknown Sex and Gender Information Value Date Recorded Sex Assigned at Not on file Legal Sex Female 6:47 PM CDT Gender Identity Not on file Sexual Orientation Not on file Last Filed Vital Signs Vital Sign Reading Time Taken Comments Blood Pressure 139/102 07/10/2024 8:26 AM CDT Pulse 105 07/10/2024 8:26 AM CDT Temperature 36.8 C (98.2 F) 07/10/2024 8:26 AM CDT Respiratory Rate 18 07/10/2024 8:26 AM CDT Oxygen Saturation 98% 07/10/2024 8:26 AM CDT Inhaled Oxygen Concentration - - Weight 63.5 kg (140 lb) 07/08/2024 10:07 PM CDT Height 154.9 cm (5' 1) 07/08/2024 10:07 PM CDT Body Mass Index 26.45 07/08/2024 10:07 PM CDT Plan of Treatment Health Maintenance Due Date Last Done Comments HIV SCREENING 2014 HPV VACCINE (1 - 3-dose series) 2014 CHLAMYDIA/GONORRHEA SCREENING 2015 HEPATITIS C SCREENING 06/18/2017 DTAP/TDAP/TD VACCINES (1 - Tdap) 2018 HEPATITIS B VACCINE (1 of 3 - 19+ 3-dose series) 2018 PAP SMEAR 2020 COVID-19 VACCINE (1 - 2023-2 5 season) 2024 DEPRESSION SCREENING 11/12/2024 INFLUENZA VACCINE (#1) 2025 ZOSTER VACCINE (1 of 2) 2049 HIB VACCINE Aged Out No longer eligi ble based on patient's age to complete this topic MENINGOCOCCAL (Group B) VACC INE SHARED DECISION-MAKING Aged Out No longer eligibl e based on patient's age to complete this topic MENINGOCOCCAL GROUPS A/C/Y/W VACCINE Aged Out No longer eligible b ased on patient's age to complete this topic PNEUMOCOCCAL VACCINE Aged Out No long er eligible based on patient's age to complete this topic Insurance MEDICAID [employer] [facility] Advance Directives * Full Code (Latest Code Status on File) Date Activated Date Inactivated Comments 07/08/2024 10:04 PM 07/10/2024 6:24 PM Care Teams Clinical Product Manager Relationship Specialty Start Date End Date Krzysztof Phillips MD [address] [address] PCP - General Family Medicine 07/10/24
--- OUTSIDE RECORDS SUMMARY | 2025-06-29 07:44 | XMS_ITS | Continuity of Care Document ---
Author Organization [facility] Address [address] [place] [address] Phone Care Team Providers Care Information Systems Architect Name Role Phone Unavailable Unavailable Unavailable Procedures Procedure Date Coronavirus AG IA (Rapid Test) 21 Results Test Name Date and Time Measure Units Reference Range Abnormal Flag Status Comments Panel Description: SARS-CoV- 2 (COVID-19) RNA [Presence] in Respiratory specimen by JOSE M with probe detection Final POC Covid 19 PCR 17:34:56 Detected Not Detected AA Final Advance Directives Directive Yes / No Effective Date File Name No Information Encounters Encounter Description Practice Location Reason(s) For Visit Diagnoses Date Provider Providers Copied on Encounter [facility] , [address], [place], [place], [id number], [place] tel:[phone] [facility] Encounter for screening for COVID-19 No Information Family History Family Member Type Diagnosis Age At Onset No Information Payers Payer name Insurance type Covered constitution party ID Authoriza tion(s) No Information Social History Type Description Quantity Date Captured Comments Sex Female Smoking Status No Information Chief Complaint And Reason For Visit No Information Reason For Referral Reason For Referral No Information History Of Present Illness Encounter Date Complaint History Of Prese nt Illness No Information Functional Status Date Functional Assessmen t No Information Instructions Date Instruction Additional Infor mation No Information Assessments Type Assessment Date No Information Patient Care Teams Name Effective Dates (start - stop) Status Members No Information
[2025-06-29 08:19] LABS: BEDSIDEPREGUCG Negative (Negative)
[2025-06-29] MEDS: ONDANSETRON INJ 4 MG/2 ML VIAL IV PUSH (08:28)
[2025-06-29] MEDS: SODIUM CHLORIDE 0.9% IV 1,000 ML 999 ML IV CONT (08:28)
[2025-06-29 08:32] LABS: Hematocrit 35.7 % (37.0-47.0); Hemoglobin 12.3 g/dL (12.0-15.0); Immature Granulocyte Percent A 0.3 % (0-0.5); Lymphocytes Absolute Auto 2.41 K/mm3 (0.9-3.2); Mean Corpuscular HGB Conc 34.5 g/dl (32-36); Mean Corpuscular Hemoglobin 31.8 pg (26-34); Mean Corpuscular Volume 92.2 fl (80-100); Nucleated Red Blood Cells Absolute Auto 0.000 K/mm3 (0.0-0.012); Nucleated Red Blood Cells Perc 0.0 % (0.0-0.2); Platelet Count Result 252 k/mm3 (150-375); Red Blood Count 3.87 M/mm3 (4.2-5.4); White Blood Count 7.8 K/mm3 (4.5-10.0)
[2025-06-29 08:46] LABS: Albumin Level 4.4 g/dL (3.5-5.1); Alkaline Phosphatase 231 U/L (38-126); Anion Gap 12 mmol/L (4-12); Aspartate Amino Transferase 694 U/L (14-36); Bilirubin,Total 3.6 mg/dL (0.2-1.3); Blood Urea Nitrogen 12 mg/dL (7-17); Calcium 9.9 mg/dL (8.4-10.2); Carbon Dioxide 22 mmol/L (22-30); Chloride 102 mmol/L (98-107); Estimated CRCL calculation 84 ml/min; Estimated Glomerular Filt Rate > 60; Glucose 126 mg/dL (65-110); Lipase 301 U/L (23-300); Potassium 3.3 mmol/L (3.4-5.0); Sodium 136 mmol/L (137-145); Total Protein 8.1 g/dL (6.3-8.2)
[2025-06-29 08:47] LABS: Add Urine Microscopic? YES; Appearance Urine Cloudy (Clear); Glucose Urine UA Negative (Negative); INR 1.1; Leukocyte Esterase Ur 2+ LEU/UL (Negative); Nitrate Urine Positive (Negative); Non Pathogenic Casts >20; Partial Thromboplastin Time 28.0 Seconds (22.3-36.8); Prothrombin Time 14.1 Seconds (11.1-14.7); Specific Grav Ur 1.030 (1.001-1.035)
--- OUTSIDE RECORDS SUMMARY | 2025-06-29 08:56 | XMS_ITS | Clinical Summary ---
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 Not on file Obstetrics History Last Filed Vital Signs Vital Sign Reading Time Taken Comments Blood Pressure 142/94 09/27/2023 9:52 AM HOGSHEAD MAT INSPECTOR Pulse 105 09/27/2023 9:52 AM HOGSHEAD MAT INSPECTOR Temperature 36.1 C (97 F) 09/27/2023 9:40 AM HOGSHEAD MAT INSPECTOR Respiratory Rate 17 09/27/2023 9:40 AM HOGSHEAD MAT INSPECTOR Oxygen Saturation 98% 09/27/2023 9:52 AM HOGSHEAD MAT INSPECTOR Inhaled Oxygen Concentration - - Weight 67.1 kg (148 lb) 09/27/2023 9:40 AM HOGSHEAD MAT INSPECTOR Height 152.4 cm (5') 09/27/2023 9:40 AM HOGSHEAD MAT INSPECTOR Body Mass Index 28.9 09/27/2023 9:40 AM HOGSHEAD MAT INSPECTOR Plan of Treatment Health Maintenance Due Date [...] to complete this topic Insurance AETNA BETTER [facility] AETNA BETTER [facility] Care Teams Clerical Aide Relationship Specialty Start Date End Date Krzysztof Phillips MD [address] [place] [address] [address] [place] [address] PCP - General Family Medicine 05/02/23
--- OUTSIDE RECORDS SUMMARY | 2025-06-29 08:56 | XMS_ITS | Clinical Summary ---
Author Organization [facility] [employer] Address [address] [place] [address] Care Team Providers Care Reel Film Inspector Name Role Phone Krzysztof Phillips MD Primary Care Provider Source Comments [facility],non-owned Affiliates and Associated Physician Practices is amultiple site organization consisting of ambulatory clinics and hospital sitesin [place], [place], [place] and [place]. This disclosure is being madepursuant to the Care Everywhere program and may not contain all information available regarding this patient. Last updated 18.[facility] [employer] Allergies Active Allergy Reactions Criticality Noted Date [...] and heating? Not hard at all 07/08/2024 [facility] [place] of Occupat ional Health - Occupational Stress [...] place to sleep or slept in a prison (including now)? No 07/08/2024 Comments Unknown Sex [...] 10:04 PM 07/10/2024 6:24 PM Care Teams Reel Film Inspector Relationship Specialty Start Date End Date Krzysztof Phillips MD [address] [address] PCP - General Family Medicine 07/10/24
--- OUTSIDE RECORDS SUMMARY | 2025-06-29 08:56 | XMS_ITS | Continuity of Care Document ---
Author Organization [facility] Address [address] [place] [address] Phone Care Team Providers Care Bartender Name Role Phone Unavailable Unavailable Unavailable Procedures [...] Diagnoses Date Provider Providers Copied on Encounter [facility] , [address], [place], [place], [id number], [place] tel:[phone] [facility] Encounter for screening for COVID-19 No Information Family History Family Member Type Diagnosis Age At Onset No Information Payers Payer name Insurance type Covered libertarian ID Authoriza tion(s) No Information Social History [...]
[2025-06-29 09:01] LABS: Alanine Aminotransferase 1009 U/L (6-35)
[2025-06-29 09:07] LABS: Hepatitis B Surface Antigen Negative (Negative)
[2025-06-29 09:13] LABS: HAV RESULT Negative (Negative); Hepatitis B Core IgM Result Negative (Negative)
[2025-06-29] MEDS: cefTRIAXone 1 GM in SODIUM CHLORIDE 0.9% IV 50 ML 100 ML IVPB (09:31)
--- NOTE | 2025-06-29 09:54 | ED_ITS ---
HPI - Abdominal Pain General Chief Complaint: Abdominal Pain Stated Complaint: stomach and back pain Time Seen by Provider: 06/29/25 07:45 Source: patient, RN notes reviewed and old records reviewed Mode of arrival: ambulatory Limitations: no limitations History of Present Illness HPI narrative: This is a 25 year old female with history of pancreatitis who presents for evaluation of upper abdominal pain. Patient states she has been having constant epigastric abdominal pain that radiates to bilateral sides and back for 1 week. She states her pain is getting worse. IT is similar to when she was pancreatitis before but she is unsure of the cause. She also noticed that her eyes are jaundiced. She had nausea and vomiting at onset of her pain 9 days ago. She denies fever or diarrhea. She states she had not drank alcohol in 2 weeks and she denies heavy alcohol use. She rates pain 5/10. MD elicited complaint: abdominal pain Location: epigastric Severity: moderate Related Data Allergies Allergy/AdvReac Type Severity Reaction Status Date / Time No Known Allergies Allergy Verified 06/29/25 08:16 [facility] Past Medical History Medical History (Updated 06/29/25 @ 12:55 by Marian Stewart MD) Pancreatitis No significant past medical history Surgical History Surgical History No significant past surgical history Family History Family History Father Asthma Mother , Complications related to pneumonia No problems noted. Social History Social History Smoking status: Former smoker Tobacco type: cigarettes Second hand tobacco smoke exposure: Yes Smoking end date: 04/12/20 Alcohol intake: current Substance use: never Living arrangements: with family Occupation/Education: occupation Gender identity (if verbalized by the patient): Female Exam 2 Const: General: no acute distress and alert Nutritional Appearance: well nourished Orientation/consciousness: patient oriented x3 HENMT: Head: normal to inspection Eyes: Conjunctivae: conjunctival abnormality bilateral conjunctival icterus EOM: EOMs intact bilaterally Chest: Chest palpation & inspection: normal inspection of the chest Resp: Effort & Inspection: normal respiratory effort Auscultation: clear to auscultation bilaterally Cardio: Rate: tachycardic Rhythm: regular rhythm Heart sounds: no murmurs GI: GI Palp: Yes Soft to palpation, Yes Tenderness to palpation present (GI) (epigastric, RUQ), No Guarding due to palpation present (GI) and No Rigid due to palpation Auscultation: normal bowel sounds Skin: General skin exam: normal color Neuro: General: patient oriented x3, moves all extremities and CN's II-XI intact bilaterally Extrem: General: normal to inspection Psych: Mental Status: mental status grossly normal Affect: normal affect Attitude: cooperative Course Reevaluation(s) Reevaluation #1: I Discussed with patient plan to admit. She denies any other questions or concerns. She reports hospitalist have come to talk to her Date: 06/29/25 Time: 12:51 Consultations Consultation #1: I Discussed case with Dr. Carballo. He agrees to consult and he recommends MRCP and surgery consult Date: 06/29/25 Time: 10:48 Consultation #2: I Spoke with Dr. diamond of general surgery and he agrees to consult Date: 06/29/25 Time: 12:50 Vital Signs Vital signs: Vital Signs Pulse Rate 123 H 06/29/25 07:49 Respiratory Rate 16 06/29/25 07:49 Blood Pressure 153/115 H 06/29/25 07:49 Temperature 98.3 F 06/29/25 08:30 Pulse Rate 102 H 06/29/25 11:46 Respiratory Rate 20 06/29/25 11:46 Blood Pressure 131/85 06/29/25 11:46 Pulse Oximetry 100 06/29/25 11:46 MDM - Abdominal Pain Differential Diagnosis Differential diagnosis: Likely abdominal pain, constipation, gastroenteritis, pancreatitis, small bowel obstruction and other (cholecystitis, ) Medical Records Attestation: I reviewed the patient's medical records. Lab Data Attestation: I reviewed the patient's lab results. 06/29/25 08:19 06/29/25 08:19 Labs: Lab Results 06/29/25 06/29/25 06/29/25 Range/Units 08:17 08:19 09:38 WBC 7.8 (4.5-10.0) K/mm3 RBC 3.87 L (4.2-5.4) M/mm3 Hgb 12.3 (12.0-15.0) g/dL Hct 35.7 L (37.0-47.0) % MCV 92.2 (80-100) fl MCH 31.8 (26-34) pg MCHC 34.5 (32-36) g/dl RDW 12.8 (11.5-14.5) % Plt Count 252 (150-375) k/mm3 MPV 11.9 H (7.4-10.4) fl Immature Gran % (Auto) 0.3 (0-0.5) % Neut % (Auto) 55.7 (45.5-73.1) % Lymph % (Auto) 30.9 (18.3-44.2) % [place] % (Auto) 11.5 H (2.6-8.5) % Eos % (Auto) 1.2 (0-4.4) % Baso % (Auto) 0.4 (0.2-1.2) % Lymph # (Auto) 2.41 (0.9-3.2) K/mm3 [place] # (Auto) 0.9 H (0.1-0.6) K/mm3 Eos # (Auto) 0.1 (0-0.3) K/mm3 Baso # (Auto) 0.0 (0.0-0.1) K/mm3 Abs Immat Gran (auto) 0.02 (0.00-0.031) K/mm3 Absolute Neuts (auto) 4.4 (1.3-6.7) K/mm3 Absolute Nucleated RBC 0.000 (0.0-0.012) K/mm3 Nucleated RBC % 0.0 (0.0-0.2) % PT 14.1 (11.1-14.7) Seconds INR 1.1 APTT 28.0 (22.3-36.8) Seconds Sodium 136 L (137-145) mmol/L Potassium 3.3 L (3.4-5.0) mmol/L Chloride 102 (98-107) mmol/L Carbon Dioxide 22 (22-30) mmol/L Anion Gap 12 (4-12) mmol/L BUN 12 D (7-17) mg/dL Creatinine 0.73 (0.7-1.0) mg/dL Estim Creat Clear Calc 84 ml/min Estimated GFR > 60 (59 - ) Glucose 126 H (65-110) mg/dL Lactic Acid 0.7 (0.7-2.0) mmol/L Calcium 9.9 (8.4-10.2) mg/dL Total Bilirubin 3.6 H (0.2-1.3) mg/dL AST 694 H (14-36) U/L ALT 1009 H (6-35) U/L Alkaline Phosphatase 231 H (38-126) U/L Total Protein 8.1 (6.3-8.2) g/dL Albumin 4.4 (3.5-5.1) g/dL Lipase 301 H (23-300) U/L Urine Color Dark yellow (Yellow) Urine Appearance Cloudy H (Clear) Urine pH 5.5 (5.0-9.0) Ur Specific [place] 1.030 (1.001-1.035) Urine Protein 2+ H (Negative) mg/dL Urine Glucose (UA) Negative (Negative) mg/dL Urine Ketones Trace H (Negative) mg/dL Ur Blood (Man) 3+ H (Negative) Urine Nitrate Positive H (Negative) Urine Bilirubin 3+ H (Negative) Urine Urobilinogen 1.0 (<2.0) mg/dL Leukocyte Esterase Rfl 2+ H (Negative) MILAGROS/UL Urine RBC 51-100 H (0-2) /hpf Urine WBC 21-50 H (0-3) /hpf Ur Squamous Epith Cells Occasional (Few) /hpf Urine Bacteria 4+ H /hpf Urine Casts >20 Urine Mucus Present /lpf POC Urine HCG, Qual Negative (Negative) Hepatitis A IgM Ab Negative (Negative) Hep Bs Antigen Negative (Negative) Hep B Core IgM Ab Negative (Negative) Hepatitis C Ab Screen Negative (Negative) Imaging Data Radiologist's impression: ITS Impressions Abdomen Ultrasound 06/29/25 10:26 IMPRESSION: Gallbladder sludge . Discharge Plan Discharge Clinical Impression: Transaminitis, Right upper quadrant abdominal pain Patient Disposition: Still a Patient Condition: Stable Instructions: Antibiotic Form Patient Language: Pashto Prescriptions: No Action amlodipine 5 mg tablet 5 mg PO DAILY 30 Days Qty: 30 0RF pantoprazole [Protonix] 40 mg tablet,delayed release (DR/EC) 40 mg PO HS 28 Days Qty: 28 0RF Follow-up/Referrals: UNKNOWN,DOCTOR [Primary Care Provider] -
--- NOTE | 2025-06-29 12:59 | PM.IMHP ---
H&P: HPI History of Present Illness Date/Time: 06/29/25 12:59 Chief Complaint: Abdominal Pain Narrative: 25 y/o F with PMH pancreatitis (unknown etiology to patient) and HTN presents here with abdominal pain. The patient presents here from home on 06/29 for further evaluation of right upper abdominal pain. She reports onset approximately 1 week ago. She reports the pain has been constant but intermittent in severity. At baseline it has a dull aching quality but is intermittently exacerbated and the pain becomes sharp/severe. She reports food tends to make the the pain worse which has reduced her appetite/p.o. Intake over the past week. She also reports laying flat occasionally makes the pain worse. She reports the pain wraps around to her mid upper back. She reports associated nausea and vomiting, not present. She reports a history of pancreatitis with unknown etiology. She reports she was previously told to avoid alcohol, but no further information about potential causes was provided to her. She does report seem mild pain in the left upper region but nothing severe. She denies any fever, chills, body aches, or diarrhea. Initial VS at presentation: 98.3? F, HR 123, R 16, 153/115, and 100% on RA. ED workup showed: No leukocytosis, no anemia, normal coags, sodium 136, potassium 3.3, glucose 126, creatinine 0.73 and GFR >60, total bilirubin 3.6, AST 694, ALT 1009, alk-phos 231, and lipase 301. UA suspicious for UTI, however does have occasional epithelial cells. Hepatitis panel negative. test negative. Abdominal ultrasound showed gallbladder sludge. MRCP pending. Review of Systems Review of Systems: All systems reviewed & are unremarkable except as noted in HPI and below PMFSH Past Medical History Medical History (Updated 06/29/25 @ 16:48 by Julissa Gaona APRN) Hypertension Pancreatitis Surgical History Surgical History No significant past surgical history Family History Family History (Updated 06/29/25 @ 15:27 by Kisha Tsai RN) Father No problems noted. Mother , Complications related to pneumonia No problems noted. Grandparent Asthma Hypertension Social History Social History Smoking status: Never smoker Tobacco type: cigarettes Second hand tobacco smoke exposure: Yes Smoking end date: 04/12/20 Alcohol intake: current Drinks per week: 4 Substance use: never Lack of Transportation: No Lack of Food: Never True Current Housing: I Have Housing Concerned About Future Housing: No Difficulty Paying Gas/Electric Bills: No Difficulty Paying for Meds: No Currently Unemployed: No Education: Bachelor's Degree Difficulty w/ Childcare or Family Care: No Living arrangements: with family Occupation/Education: occupation Gender identity (if verbalized by the patient): Female Spiritual care concerns: No Meds Home Medications and Allergies Home Medications ?Medication ?Instructions ?Recorded ?Confirmed ?Type amlodipine 5 mg tablet 5 mg PO DAILY 30 days #30 tabs 04/18/24 06/29/25 Rx pantoprazole 40 mg tablet,delayed 40 mg PO HS 4 weeks #28 tabs 04/18/24 06/29/25 Rx release (Protonix) biotin .ROUTE 06/29/25 History cyanocobalamin (vitamin B-12) PO 06/29/25 History magnesium PO 06/29/25 History Allergies Allergy/AdvReac Type Severity Reaction Status Date / Time No Known Allergies Allergy Verified 06/29/25 08:16 Vital Signs Vital Signs - 24 hr 06/29/25 07:49 06/29/25 08:30 06/29/25 09:32 Temperature 98.3 F Pulse Rate 123 H 96 91 Respiratory Rate 16 20 20 Blood Pressure 153/115 H 137/105 H 143/99 H Pulse Oximetry 100 100 06/29/25 11:46 Temperature Pulse Rate 102 H Respiratory Rate 20 Blood Pressure 131/85 Pulse Oximetry 100 Exam Const: General: comfortable and no acute distress Other: , female, nontoxic appearance HENMT: Face/Nose/Sinus: Normal nares present Mouth: Yes moist mucous membranes Eyes: General: appearance normal, both eyes and all related structures Sclera: sclerae normal Pupils: Equal, round and reactive pupils present EOM: EOMs intact bilaterally Resp: Effort & Inspection: normal respiratory effort Auscultation: clear to auscultation bilaterally Cardio: Rate: regular rate Rhythm: regular rhythm Other: S1-S2 present without murmur, rub, ectopy GI: Other: Abdomen soft and nondistended. Significant tenderness in the right upper quadrant, scant tenderness in the left upper quadrant. Normoactive bowel sounds in all quadrants. Skin: General skin exam: normal color and no rashes or lesions noted Wounds: no wounds Neuro: Speech: normal speech Motor exam (neuro): 5/5 motor strength present throughout Sensory Exam: normal sensation Other: A&O x4 Extrem: General: normal to inspection Psych: Mental Status: mental status grossly normal Affect: normal affect Other: Good insight and judgment, pleasant H&P: Results Labs Labs: Short CBC 06/29/25 Range/Units 08:19 WBC 7.8 (4.5-10.0) K/mm3 Hgb 12.3 (12.0-15.0) g/dL Hct 35.7 L (37.0-47.0) % Plt Count 252 (150-375) k/mm3 BMP 06/29/25 08:19 Sodium 136 L Potassium 3.3 L Chloride 102 Carbon Dioxide 22 BUN 12 D Creatinine 0.73 Glucose 126 H Calcium 9.9 Liver Function 06/29/25 Range/Units 08:19 Total Bilirubin 3.6 H (0.2-1.3) mg/dL AST 694 H (14-36) U/L ALT 1009 H (6-35) U/L Alkaline Phosphatase 231 H (38-126) U/L Albumin 4.4 (3.5-5.1) g/dL Urine 06/29/25 Range/Units 08:19 Urine Color Dark yellow (Yellow) Urine Appearance Cloudy H (Clear) Urine pH 5.5 (5.0-9.0) Ur Specific [place] 1.030 (1.001-1.035) Urine Protein 2+ H (Negative) mg/dL Urine Glucose (UA) Negative (Negative) mg/dL Assessment and Plan Assessment and plan (1) Right upper quadrant abdominal pain: Code(s): R10.11 - Right upper quadrant pain Status: Acute Assessment and Plan: - abdominal ultrasound showed gallbladder sludge. - MRCP pending - transaminitis noted on initial lab work - IV fluids: 1L bolus -> 125 mL/hr - analgesics prn - antiemetic prn - clear liquid diet, npo at midnight Constellation of symptoms, imaging, and lab work are suspicious for choledocholithiasis. MRCP is pending. General surgery and GI have been consulted. No current leukocytosis or systemic symptoms concerning for acute cholecystitis. (2) Transaminitis: Code(s): R74.01 - Elevation of levels of liver transaminase levels Status: Acute Assessment and Plan: - total bilirubin 3.6, AST 694, ALT 1009 - hepatitis panel negative - gallbladder sludge noted on ultrasound and patient experiencing right upper quadrant pain which is suspicious for choledocholithiasis. General surgery and GI consulted. MRCP pending. - trend LFTs - IV fluids (3) UTI (urinary tract infection): Qualifiers: Hematuria presence: without hematuria Urinary tract infection type: acute cystitis Qualified Code(s): N30.00 - Acute cystitis without hematuria Code(s): N39.0 - Urinary tract infection, site not specified Status: Suspected Assessment and Plan: - UA: Cloudy, 2+ protein, trace ketones, 3+ blood, positive nitrates, 3+ bilirubin, 2+ leuk esterase, 51 to 100 RBC, 21-50 WBC, occasional epithelial cells and 4+ bacteria - UC pending - previous micro reviewed and no resistances noted - started on Ceftriaxone on 06/29 (4) Hypertension: Qualifiers: Hypertension type: primary hypertension Qualified Code(s): I10 - Essential (primary) hypertension Code(s): I10 - Essential (primary) hypertension Status: Resolved Assessment and Plan: - chronic/resolved, currently 131/85 - previously on amlodipine, no longer taking - monitor Plan Diet: clear liquid diet, npo at midnight GI Prophylaxis: n/a DVT Prophylaxis: SCDs IV fluids: 1L bolus -> 125 mL/hr Lines/Tubes: Peripheral IV Code Status: Full code Quality VTE Prophylaxis VTE prophylaxis: mechanical ordered Hospitalist [facility] Advance Care Plan I have confirmed that the patient's Advanced Care Plan is present, code status is documented, or surrogate decision maker is listed in patient medical record.: Yes Medication Reconciliation I have utilized all available resources to obtain, update and review the patients current medications (includes all prescriptions, OTC, herbals, cannabis, and nutritional supplements).: Yes
--- NOTE | 2025-06-29 13:17 | P.CONGS_ITS ---
Assessment and Plan Assessment and plan (1) Right upper quadrant abdominal pain: Code(s): R10.11 - Right upper quadrant pain Status: Acute Assessment and Plan: Patient presented to ED today with 1 week of upper abdominal pain radiating to her back with associated nausea and vomiting. She has history of pancreatitis with last episode roughly 1 year ago. Decreased appetite. Ultrasound demonstrated gallbladder sludge but no wall thickening or stones. Elevated bilirubin, AST, ALT, alk-phos. Lipase elevated at 301. Denies recent heavy alcohol consumption. MRCP ordered. * Follow-up with MRCP results. * Keep patient NPO and continue to treat pain and nausea. * No immediate surgical intervention, as patient will need pancreatitis resolved before proceeding with surgery. Pending MRCP results, patient may need interval cholecystectomy. If right upper quadrant pain and nausea/vomiting returns, patient can see us in outpatient clinic for evaluation and further scheduling. (2) Transaminitis: Code(s): R74.01 - Elevation of levels of liver transaminase levels Status: Acute Plan Discussed patient's case and plan of care with Dr. Haque. History of Present Illness Consult details Consult date: 06/29/25 Reason for consult: other (Gallbladder sludge, abdominal pain, elevated LFTs) Requesting physician: Marian Stewart MD Narrative: Patient is a 25-year-old female with history of pancreatitis and hypertension who we have been asked to see in surgical consultation for gallbladder sludge abdominal pain, and elevated LFTs. Patient presented to the ED today after having 1 week of diffuse upper abdominal pain radiating to her back. Patient also has associated nausea and vomiting with last episode of emesis believed to be over a week ago. Patient states that the pain continued to worsen and felt similar to last episode of pancreatitis 1 year ago. She denies any episodes in the interim. Per chart review, patient was seen in the ED on 07/07/[address] scan demonstrated acute necrotic pancreatitis and small volume of pelvic ascites. She was transferred to [facility]. Patient states that she drinks socially and that she has not drank since 06/14. No history of gallstones or demonstration of cholelithiasis on any imaging from last year. Abdominal ultrasound was obtained in the ED today and demonstrated gallbladder sludge with no wall thickening or surrounding fluid. Pancreas not visualized due to obscuration by overlying bowel gas. Normal WBC. Elevated bilirubin and liver enzymes. Potassium 3.3. Lipase elevated at 301. Patient denies any abdominal surgeries. She notes that her movements have been irregular since she has been eating less with pain and nausea. She cannot recall when last bowel movement was. No hematemesis. [facility] Past Medical History Medical History (Updated 06/29/25 @ 13:14 by Julissa Gaona APRN) Hypertension Pancreatitis Surgical History Surgical History No significant past surgical history Family History Family History Father Asthma Mother , Complications related to pneumonia No problems noted. Social History Social History Smoking status: Former smoker Tobacco type: cigarettes Second hand tobacco smoke exposure: Yes Smoking end date: 04/12/20 Alcohol intake: current Substance use: never Living arrangements: with family Occupation/Education: occupation Gender identity (if verbalized by the patient): Female Meds Home Medications and Allergies Home Medications ?Medication ?Instructions ?Recorded ?Confirmed ?Type amlodipine 5 mg tablet 5 mg PO DAILY 30 days #30 tabs 04/18/24 07/07/24 Rx pantoprazole 40 mg tablet,delayed 40 mg PO HS 4 weeks #28 tabs 04/18/24 Rx release (Protonix) Allergies Allergy/AdvReac Type Severity Reaction Status Date / Time No Known Allergies Allergy Verified 06/29/25 08:16 Vital Signs Vital Signs - 24 hr 06/29/25 07:49 06/29/25 08:30 06/29/25 09:32 Temperature 98.3 F Pulse Rate 123 H 96 91 Respiratory Rate 16 20 20 Blood Pressure 153/115 H 137/105 H 143/99 H Pulse Oximetry 100 100 06/29/25 11:46 Temperature Pulse Rate 102 H Respiratory Rate 20 Blood Pressure 131/85 Pulse Oximetry 100 Exam 2 Const: General: comfortable and no acute distress Eyes: General: appearance normal, both eyes and all related structures Neck: Neck: supple Resp: Effort & Inspection: normal respiratory effort Cardio: Rate: tachycardic GI: Inspection: non-distended GI Palp: Yes Soft to palpation, Yes Tenderness to palpation present (GI) (Mid and right-sided upper abdominal pain) and No Guarding due to palpation present (GI) : General: Yes bladder normal to palpation Skin: General skin exam: normal color and no rashes or lesions noted Neuro: Speech: normal speech Sensory Exam: normal sensation Extrem: General: normal to inspection Psych: Mental Status: mental status grossly normal Results Labs 06/29/25 08:19 06/29/25 08:19 Labs: Abnormal lab results 06/29/25 Range/Units 08:19 RBC 3.87 L (4.2-5.4) M/mm3 Hct 35.7 L (37.0-47.0) % MPV 11.9 H (7.4-10.4) fl [place] % (Auto) 11.5 H (2.6-8.5) % [place] # (Auto) 0.9 H (0.1-0.6) K/mm3 Sodium 136 L (137-145) mmol/L Potassium 3.3 L (3.4-5.0) mmol/L Glucose 126 H (65-110) mg/dL Total Bilirubin 3.6 H (0.2-1.3) mg/dL AST 694 H (14-36) U/L ALT 1009 H (6-35) U/L Alkaline Phosphatase 231 H (38-126) U/L Lipase 301 H (23-300) U/L Urine Appearance Cloudy H (Clear) Urine Protein 2+ H (Negative) mg/dL Urine Ketones Trace H (Negative) mg/dL Ur Blood (Man) 3+ H (Negative) Urine Nitrate Positive H (Negative) Urine Bilirubin 3+ H (Negative) Leukocyte Esterase Rfl 2+ H (Negative) MILAGROS/UL Urine RBC 51-100 H (0-2) /hpf Urine WBC 21-50 H (0-3) /hpf Urine Bacteria 4+ H /hpf Diabetes panel 06/29/25 Range/Units 08:19 Sodium 136 L (137-145) mmol/L Potassium 3.3 L (3.4-5.0) mmol/L Chloride 102 (98-107) mmol/L Carbon Dioxide 22 (22-30) mmol/L BUN 12 D (7-17) mg/dL Creatinine 0.73 (0.7-1.0) mg/dL Glucose 126 H (65-110) mg/dL Calcium 9.9 (8.4-10.2) mg/dL AST 694 H (14-36) U/L ALT 1009 H (6-35) U/L Alkaline Phosphatase 231 H (38-126) U/L Total Protein 8.1 (6.3-8.2) g/dL Albumin 4.4 (3.5-5.1) g/dL Calcium panel 06/29/25 Range/Units 08:19 Calcium 9.9 (8.4-10.2) mg/dL Albumin 4.4 (3.5-5.1) g/dL Pituitary panel 06/29/25 Range/Units 08:19 Sodium 136 L (137-145) mmol/L Potassium 3.3 L (3.4-5.0) mmol/L Chloride 102 (98-107) mmol/L Carbon Dioxide 22 (22-30) mmol/L BUN 12 D (7-17) mg/dL Creatinine 0.73 (0.7-1.0) mg/dL Glucose 126 H (65-110) mg/dL Calcium 9.9 (8.4-10.2) mg/dL Adrenal panel 06/29/25 Range/Units 08:19 Sodium 136 L (137-145) mmol/L Potassium 3.3 L (3.4-5.0) mmol/L Chloride 102 (98-107) mmol/L Carbon Dioxide 22 (22-30) mmol/L BUN 12 D (7-17) mg/dL Creatinine 0.73 (0.7-1.0) mg/dL Glucose 126 H (65-110) mg/dL Calcium 9.9 (8.4-10.2) mg/dL Total Bilirubin 3.6 H (0.2-1.3) mg/dL AST 694 H (14-36) U/L ALT 1009 H (6-35) U/L Alkaline Phosphatase 231 H (38-126) U/L Total Protein 8.1 (6.3-8.2) g/dL Albumin 4.4 (3.5-5.1) g/dL All other labs normal.
[2025-06-29] MEDS: MORPHINE SULFATE (*CRX) 4 MG/ML INJ IV PUSH ×2 (14:03→20:43)
[2025-06-29] MEDS: SODIUM CHLORIDE 0.9% IV 1,000 ML 125 ML IV CONT ×2 (14:04→23:13)
--- NOTE | 2025-06-29 15:00 | PC.NURSE ---
This patient, Jennifer Viera, was admitted to [facility] Surg Room 300-01. Patient/family oriented to hospital policies and general routines including ID bracelet, bed and alarms, visiting hours, pain management, procedures, bathroom and other care routines, personal items, smoking policy, room service/diet, and visiting hours. Information on how to activate the Rapid Response Team has been discussed. Patient/Family are encouraged to report perceived risks to care and to ask questions if they do not understand what they are told or what they should do.
--- OUTSIDE RECORDS SUMMARY | 2025-06-29 16:29 | XMS_ITS | Continuity of Care Document ---
Author Organization [facility] Address [address] [place] [address] Phone Care Team Providers Care Gear Cutter Name Role Phone Unavailable Unavailable Unavailable Procedures [...] Diagnoses Date Provider Providers Copied on Encounter [facility] [address], [place], [place], [id number], [place] tel:[phone] [facility] Encounter for screening for COVID-19 No Information Family History Family Member Type Diagnosis Age At Onset No Information Payers Payer name Insurance type Covered alliance party ID Authoriza tion(s) No Information Social [...]
--- OUTSIDE RECORDS SUMMARY | 2025-06-29 16:29 | XMS_ITS | Clinical Summary ---
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 on file Not on file Not on file Obstetrics History Last Filed Vital Signs Vital Sign Reading Time Taken Comments Blood Pressure 142/94 09/27/2023 9:52 AM INSTRUMENT AND CONTROL SERVICE PERSON Pulse 105 09/27/2023 9:52 AM INSTRUMENT AND CONTROL SERVICE PERSON Temperature 36.1 C (97 F) 09/27/2023 9:40 AM INSTRUMENT AND CONTROL SERVICE PERSON Respiratory Rate 17 09/27/2023 9:40 AM INSTRUMENT AND CONTROL SERVICE PERSON Oxygen Saturation 98% 09/27/2023 9:52 AM INSTRUMENT AND CONTROL SERVICE PERSON Inhaled Oxygen Concentration - - Weight 67.1 kg (148 lb) 09/27/2023 9:40 AM INSTRUMENT AND CONTROL SERVICE PERSON Height 152.4 cm (5') 09/27/2023 9:40 AM INSTRUMENT AND CONTROL SERVICE PERSON Body Mass Index 28.9 09/27/2023 9:40 AM INSTRUMENT AND CONTROL SERVICE PERSON Plan of Treatment Health Maintenance Due Date [...] to complete this topic Insurance [employer] [facility] [employer] [facility] Care Teams Business Analytics Manager Relationship Specialty Start Date End Date Krzysztof Phillips MD [address] [place] [address] [address] [place] [address] PCP - General Family Medicine 05/02/23
--- OUTSIDE RECORDS SUMMARY | 2025-06-29 16:29 | XMS_ITS | Clinical Summary ---
Author Organization [facility] [employer] Address [address] [place] [address] Care Team Providers Care Park Services Specialist Name Role Phone Krzysztof Phillips MD Primary Care Provider Source Comments [facility],non-owned Affiliates and Associated Physician Practices is amultiple site organization consisting of ambulatory clinics and hospital sitesin [place], [place], [place] and [place]. This disclosure is being madepursuant to the Care Everywhere program and may not contain all information available regarding this patient. Last updated 18.[facility] [employer] Allergies Active Allergy Reactions Criticality Noted Date [...] and heating? Not hard at all 07/08/2024 [facility] [place] [facility] Occupat ional Health - Occupational Stress [...] place to sleep or slept in a intermediate (including now)? No 07/08/2024 Comments Unknown Sex [...] 10:04 PM 07/10/2024 6:24 PM Care Teams Park Services Specialist Relationship Specialty Start Date End Date Krzysztof Phillips MD [address] [address] PCP - General Family Medicine 07/10/24
--- OUTSIDE RECORDS SUMMARY | 2025-06-29 16:31 | XMS_ITS | Continuity of Care Document ---
Author Organization [facility] Address [address] [place] [address] Phone Care Team Providers Care Malted Milk Supervisor Name Role Phone Unavailable Unavailable Unavailable Procedures [...] Diagnoses Date Provider Providers Copied on [facility]counter [facility] [address], [place], [place], [id number], [place] tel:[phone] [facility] Encounter for screening for COVID-19 No Information Family History Family Member Type Diagnosis Age At Onset No Information Payers Payer name Insurance type Covered republican ID Authoriza tion(s) No Information Social History [...]
[2025-06-29] MEDS: POTASSIUM CHLORIDE 20 MEQ ER TABLET 40 MEQ PO (18:51)
[2025-06-30 05:06] VITALS: BP 156/96; PULSE 78; RESP 12; TEMP 36.8; O2SAT 100
[2025-06-30 05:20] VITALS: BP 124/80
[2025-06-30 06:12] LABS: Hematocrit 29.3 % (37.0-47.0); Hemoglobin 9.9 g/dL (12.0-15.0); Immature Granulocyte Percent A 0.3 % (0-0.5); Lymphocytes Absolute Auto 3.42 K/mm3 (0.9-3.2); Mean Corpuscular HGB Conc 33.8 g/dl (32-36); Mean Corpuscular Hemoglobin 32.1 pg (26-34); Mean Corpuscular Volume 95.1 fl (80-100); Nucleated Red Blood Cells Absolute Auto 0.000 K/mm3 (0.0-0.012); Nucleated Red Blood Cells Perc 0.0 % (0.0-0.2); Platelet Count Result 209 k/mm3 (150-375); Red Blood Count 3.08 M/mm3 (4.2-5.4); White Blood Count 7.2 K/mm3 (4.5-10.0)
[2025-06-30 06:40] LABS: Alanine Aminotransferase 681 U/L (6-35); Albumin Level 3.4 g/dL (3.5-5.1); Alkaline Phosphatase 151 U/L (38-126); Anion Gap 5 mmol/L (4-12); Aspartate Amino Transferase 338 U/L (14-36); Bilirubin,Total 2.4 mg/dL (0.2-1.3); Blood Urea Nitrogen 5 mg/dL (7-17); Calcium 8.7 mg/dL (8.4-10.2); Carbon Dioxide 23 mmol/L (22-30); Chloride 108 mmol/L (98-107); Estimated CRCL calculation 109 ml/min; Estimated Glomerular Filt Rate > 60; Glucose 95 mg/dL (65-110); Lipase 276 U/L (23-300); Potassium 3.5 mmol/L (3.4-5.0); Sodium 136 mmol/L (137-145); Total Protein 6.5 g/dL (6.3-8.2)
--- NOTE | 2025-06-30 06:56 | P.PNIM_ITS ---
Progress Note: A&P Assessment and Plan (1) Right upper quadrant abdominal pain: Code(s): R10.11 - Right upper quadrant pain Status: Acute Assessment and Plan: Constellation of symptoms, imaging, and lab work are suspicious for choledocholithiasis. MRCP is pending. General surgery and GI have been consulted. No current leukocytosis or systemic symptoms concerning for acute cholecystitis. * abdominal ultrasound showed gallbladder sludge. * transaminitis noted on initial lab work * IV fluids: 1L bolus -> 125 mL/hr * analgesics/antiemetic prn * clear liquid diet, npo at midnight * MRCP scheduled @ 1200 * 06/30: AST/ALT 694/1009 -> 338/681 (2) Transaminitis: Code(s): R74.01 - Elevation of levels of liver transaminase levels Status: Acute Assessment and Plan: * gallbladder sludge noted on ultrasound and patient experiencing right upper quadrant pain which is suspicious for choledocholithiasis. General surgery and GI consulted. * total bilirubin 3.6, AST 694, ALT 1009 * hepatitis panel negative * trend LFTs * IV fluids * 06/30: AST/ALT 694/1009 -> 338/681 * MRCP results pending (3) UTI (urinary tract infection): Qualifiers: Hematuria presence: without hematuria Urinary tract infection type: acute cystitis Qualified Code(s): N30.00 - Acute cystitis without hematuria Code(s): N39.0 - Urinary tract infection, site not specified Status: Suspected Assessment and Plan: * UA: Cloudy, 2+ protein, trace ketones, 3+ blood, positive nitrates, 3+ bilirubin, 2+ leuk esterase, 51 to 100 RBC, 21-50 WBC, occasional epithelial cells and 4+ bacteria * UC pending * previous micro reviewed and no resistances noted * started on Ceftriaxone on 06/29 (4) Hypertension: Qualifiers: Hypertension type: primary hypertension Qualified Code(s): I10 - Essential (primary) hypertension Code(s): I10 - Essential (primary) hypertension Status: Resolved Assessment and Plan: * chronic/resolved, currently 131/85 * previously on amlodipine, no longer taking * monitor Plan Diet: clear liquid diet, npo at midnight GI Prophylaxis: n/a DVT Prophylaxis: SCDs IV fluids: 1L bolus -> 125 mL/hr Lines/Tubes: Peripheral IV Code Status: Full code Subjective Date/time seen: 06/30/25 06:56 Interval history: 25 y/o F with PMH pancreatitis (unknown etiology to patient) and HTN presents here with abdominal pain. 06/30/2025 Patient sitting comfortably in bed at time of examination. Denies any chest pain, shortness a breath, nausea/vomiting at this time. Still has some tenderness to palpation in the right upper quadrant abdominal area. Plan for MRCP today @ 1200. NPO until then and continues to treat pain/nausea. Seen by General surgery-no surgical intervention at this time. Will need to treat pancreatitis first. Pending GI consult as well. Review of Systems Review of Systems: All systems reviewed & are unremarkable except as noted in HPI and below Exam Const: General: comfortable and no acute distress Other: , female, nontoxic appearance HENMT: Face/Nose/Sinus: Normal nares present Mouth: Yes moist mucous membranes Eyes: General: appearance normal, both eyes and all related structures Sclera: sclerae normal Pupils: Equal, round and reactive pupils present EOM: EOMs intact bilaterally Resp: Effort & Inspection: normal respiratory effort Auscultation: clear to auscultation bilaterally Cardio: Rate: regular rate Rhythm: regular rhythm Other: S1-S2 present without murmur, rub, ectopy GI: Other: Abdomen soft and nondistended. Significant tenderness in the right upper quadrant, scant tenderness in the left upper quadrant. Normoactive bowel sounds in all quadrants. Skin: General skin exam: normal color and no rashes or lesions noted Wounds: no wounds Neuro: Cranial nerves: Yes Equal, round and reactive pupils present Speech: normal speech Motor exam (neuro): 5/5 motor strength present throughout Sensory Exam: normal sensation Other: A&O x4 Extrem: General: normal to inspection Psych: Mental Status: mental status grossly normal Affect: normal affect Other: Good insight and judgment, pleasant Objective Data Vital Signs Vital Signs: Vital Signs - 24 hr 06/29/25 07:49 06/29/25 08:21 06/29/25 08:22 Temperature Pulse Rate 123 H Respiratory Rate 16 Blood Pressure 153/115 H 139/103 H Pulse Oximetry 99 99 Oxygen Delivery 06/29/25 08:30 06/29/25 08:30 06/29/25 08:31 Temperature 98.3 F Pulse Rate 96 Respiratory Rate 20 Blood Pressure 137/105 H 137/105 H Pulse Oximetry 100 100 99 Oxygen Delivery 06/29/25 09:09 06/29/25 09:32 06/29/25 09:41 Temperature Pulse Rate 91 Respiratory Rate 20 Blood Pressure 143/99 H Pulse Oximetry 100 100 100 Oxygen Delivery 06/29/25 09:45 06/29/25 10:31 06/29/25 11:20 Temperature Pulse Rate Respiratory Rate Blood Pressure 128/92 H Pulse Oximetry 100 100 100 Oxygen Delivery 06/29/25 11:46 06/29/25 11:46 06/29/25 11:47 Temperature Pulse Rate 102 H Respiratory Rate 20 Blood Pressure 131/85 131/85 Pulse Oximetry 100 100 99 Oxygen Delivery 06/29/25 13:58 06/29/25 14:00 06/29/25 14:01 Temperature Pulse Rate Respiratory Rate Blood Pressure 139/101 H Pulse Oximetry 99 100 99 Oxygen Delivery 06/29/25 14:06 06/29/25 14:15 06/29/25 14:31 Temperature Pulse Rate 98 Respiratory Rate 20 Blood Pressure 137/101 H Pulse Oximetry 100 99 98 Oxygen Delivery 06/29/25 14:45 06/29/25 15:00 06/29/25 15:05 Temperature 97.7 F Pulse Rate 95 Respiratory Rate 16 Blood Pressure 134/85 Pulse Oximetry 99 99 Oxygen Delivery Room Air 06/29/25 20:32 06/30/25 05:06 06/30/25 05:20 Temperature 99.0 F 98.2 F Pulse Rate 105 H 78 Respiratory Rate 14 12 Blood Pressure 125/85 156/96 H 124/80 Pulse Oximetry 100 100 Oxygen Delivery Intake/Output Intake/Output: Intake & Output 06/27/25 06/28/25 06/29/25 06/30/25 23:59 23:59 23:59 23:59 Intake Total 2049 400 Balance 2049 400 Meds/Results Medications: Active Medications Generic Name Dose Route Start Last Admin Trade Name Freq PRN Reason Stop Dose Admin Acetaminophen 650 mg 06/29/25 13:12 Acetaminophen 325 Mg Tablet PO Q6H PRN Mild Pain (1-3) or Fever Hydrocodone Bitart/Acetaminophen 1 tab 06/29/25 13:12 Hydrocodone/Acetaminophen (*Crx) 5-325 Mg Tablet PO Q6H PRN Pain Rated 4-6 Sodium Chloride 1,000 mls @ 125 mls/hr 06/29/25 12:35 06/29/25 23:13 Normal Saline Iv IV CONT 125 mls/hr .Q8H ADRIANA Administration Morphine Sulfate 4 mg 06/29/25 12:32 06/29/25 20:43 Morphine Sulfate (*Crx) 4 Mg/Ml Inj IV PUSH 4 mg Q2H PRN Administration Pain Rated 7-10 Ondansetron HCl 4 mg 06/29/25 12:32 Ondansetron Inj 4 Mg/2 Ml Vial IV PUSH Q4H PRN Nausea Radiology Results: ITS Impressions Abdomen Ultrasound 06/29/25 10:26 IMPRESSION: Gallbladder sludge . Labs Labs: Laboratory Results - last 24 hr 06/29/25 06/29/25 06/29/25 08:17 08:19 09:38 WBC 7.8 RBC 3.87 L Hgb 12.3 Hct 35.7 L MCV 92.2 MCH 31.8 MCHC 34.5 RDW 12.8 Plt Count 252 MPV 11.9 H Immature Gran % (Auto) 0.3 Neut % (Auto) 55.7 Lymph % (Auto) 30.9 [place] % (Auto) 11.5 H Eos % (Auto) 1.2 Baso % (Auto) 0.4 Lymph # (Auto) 2.41 [place] # (Auto) 0.9 H Eos # (Auto) 0.1 Baso # (Auto) 0.0 Abs Immat Gran (auto) 0.02 Absolute Neuts (auto) 4.4 Absolute Nucleated RBC 0.000 Nucleated RBC % 0.0 PT 14.1 INR 1.1 APTT 28.0 Sodium 136 L Potassium 3.3 L Chloride 102 Carbon Dioxide 22 Anion Gap 12 BUN 12 D Creatinine 0.73 Estim Creat Clear Calc 84 Estimated GFR > 60 Glucose 126 H Lactic Acid 0.7 Calcium 9.9 Total Bilirubin 3.6 H AST 694 H ALT 1009 H Alkaline Phosphatase 231 H Total Protein 8.1 Albumin 4.4 Lipase 301 H Urine Color Dark yellow Urine Appearance Cloudy H Urine pH 5.5 Ur Specific [place] 1.030 Urine Protein 2+ H Urine Glucose (UA) Negative Urine Ketones Trace H Ur Blood (Man) 3+ H Urine Nitrate Positive H Urine Bilirubin 3+ H Urine Urobilinogen 1.0 Leukocyte Esterase Rfl 2+ H Urine RBC 51-100 H Urine WBC 21-50 H Ur Squamous Epith Cells Occasional Urine Bacteria 4+ H Urine Casts >20 Urine Mucus Present POC Urine HCG, Qual Negative Hepatitis A IgM Ab Negative Hep Bs Antigen Negative Hep B Core IgM Ab Negative Hepatitis C Ab Screen Negative 06/30/25 05:04 WBC 7.2 RBC 3.08 L Hgb 9.9 L Hct 29.3 L MCV 95.1 MCH 32.1 MCHC 33.8 RDW 13.2 Plt Count 209 MPV 12.3 H Immature Gran % (Auto) 0.3 Neut % (Auto) 40.1 L Lymph % (Auto) 47.6 H [place] % (Auto) 9.7 H Eos % (Auto) 1.9 Baso % (Auto) 0.4 Lymph # (Auto) 3.42 H [place] # (Auto) 0.7 H Eos # (Auto) 0.1 Baso # (Auto) 0.0 Abs Immat Gran (auto) 0.02 Absolute Neuts (auto) 2.9 Absolute Nucleated RBC 0.000 Nucleated RBC % 0.0 PT INR APTT Sodium 136 L Potassium 3.5 Chloride 108 H Carbon Dioxide 23 Anion Gap 5 BUN 5 L D Creatinine 0.53 L Estim Creat Clear Calc 109 Estimated GFR > 60 Glucose 95 Lactic Acid Calcium 8.7 Total Bilirubin 2.4 H AST 338 H ALT 681 H Alkaline Phosphatase 151 H Total Protein 6.5 Albumin 3.4 L Lipase 276 Urine Color Urine Appearance Urine pH Ur Specific [place] Urine Protein Urine Glucose (UA) Urine Ketones Ur Blood (Man) Urine Nitrate Urine Bilirubin Urine Urobilinogen Leukocyte Esterase Rfl Urine RBC Urine WBC Ur Squamous Epith Cells Urine Bacteria Urine Casts Urine Mucus POC Urine HCG, Qual Hepatitis A IgM Ab Hep Bs Antigen Hep B Core IgM Ab Hepatitis C Ab Screen Quality VTE Prophylaxis VTE prophylaxis: mechanical ordered
[2025-06-30] MEDS: SODIUM CHLORIDE 0.9% IV 1,000 ML 125 ML IV CONT ×2 (09:43→23:16)
[2025-06-30] MEDS: MORPHINE SULFATE (*CRX) 4 MG/ML INJ IV PUSH (09:47)
--- NOTE | 2025-06-30 09:58 | P.PNGS_ITS ---
Progress Note: A&P Assessment and Plan (1) Right upper quadrant abdominal pain: Code(s): R10.11 - Right upper quadrant pain Status: Acute Assessment and Plan: * MRCP scheduled for today. Will follow up with results. If CBD stone identified, will need ERCP. * Keep patient NPO and continue to treat pain and nausea. * Patient still complaining of right upper quadrant pain. Consider laparoscopic cholecystectomy, as pancreatitis is resolving. Lipase decreasing to normal levels. (2) Transaminitis: Code(s): R74.01 - Elevation of levels of liver transaminase levels Status: Acute Assessment and Plan: Decreasing. See plan above. Plan Discussed patient's case and plan of care with Dr. Haque. Subjective Subjective Date/Time Seen: 06/30/25 09:58 Patient reports: no new complaints Interval history: Patient is doing well today. Notes some right upper quadrant pain. Nausea and vomiting controlled. Lipase decreased to 276. LFTs and bilirubin increased, but less than yesterday. Scheduled for MRCP today. Exam Const: General: comfortable and no acute distress GI: Inspection: non-distended GI Palp: Yes Soft to palpation and Yes Tenderness to palpation present (GI) (Right upper quadrant pain) Objective Data Vital Signs Vital Signs: Vital Signs - 24 hr 06/29/25 10:31 06/29/25 11:20 06/29/25 11:46 Temperature Pulse Rate 102 H Respiratory Rate 20 Blood Pressure 128/92 H 131/85 Pulse Oximetry 100 100 100 Oxygen Delivery 06/29/25 11:46 06/29/25 11:47 06/29/25 13:58 Temperature Pulse Rate Respiratory Rate Blood Pressure 131/85 Pulse Oximetry 100 99 99 Oxygen Delivery 06/29/25 14:00 06/29/25 14:01 06/29/25 14:06 Temperature Pulse Rate 98 Respiratory Rate 20 Blood Pressure 139/101 H 137/101 H Pulse Oximetry 100 99 100 Oxygen Delivery 06/29/25 14:15 06/29/25 14:31 06/29/25 14:45 Temperature Pulse Rate Respiratory Rate Blood Pressure Pulse Oximetry 99 98 99 Oxygen Delivery 06/29/25 15:00 06/29/25 15:05 06/29/25 20:32 Temperature 97.7 F 99.0 F Pulse Rate 95 105 H Respiratory Rate 16 14 Blood Pressure 134/85 125/85 Pulse Oximetry 99 100 Oxygen Delivery Room Air 06/30/25 05:06 06/30/25 05:20 Temperature 98.2 F Pulse Rate 78 Respiratory Rate 12 Blood Pressure 156/96 H 124/80 Pulse Oximetry 100 Oxygen Delivery Intake/Output Intake/Output: Intake & Output 06/27/25 06/28/25 06/29/25 06/30/25 23:59 23:59 23:59 23:59 Intake Total 2049 1400 Balance 2049 1400 Meds/Results Medications: Active Medications Generic Name Dose Route Start Last Admin Trade Name Freq PRN Reason Stop Dose Admin Acetaminophen 650 mg 06/29/25 13:12 Acetaminophen 325 Mg Tablet PO Q6H PRN Mild Pain (1-3) or Fever Hydrocodone Bitart/Acetaminophen 1 tab 06/29/25 13:12 Hydrocodone/Acetaminophen (*Crx) 5-325 Mg Tablet PO Q6H PRN Pain Rated 4-6 Sodium Chloride 1,000 mls @ 125 mls/hr 06/29/25 12:35 06/30/25 09:43 Normal Saline Iv IV CONT 125 mls/hr .Q8H ADRIANA Administration Morphine Sulfate 4 mg 06/29/25 12:32 06/30/25 09:47 Morphine Sulfate (*Crx) 4 Mg/Ml Inj IV PUSH 4 mg Q2H PRN Administration Pain Rated 7-10 Ondansetron HCl 4 mg 06/29/25 12:32 Ondansetron Inj 4 Mg/2 Ml Vial IV PUSH Q4H PRN Nausea Radiology Results: ITS Impressions Abdomen Ultrasound 06/29/25 10:26 IMPRESSION: Gallbladder sludge . Labs Labs: Laboratory Results - last 24 hr 06/30/25 05:04 WBC 7.2 RBC 3.08 L Hgb 9.9 L Hct 29.3 L MCV 95.1 MCH 32.1 MCHC 33.8 RDW 13.2 Plt Count 209 MPV 12.3 H Immature Gran % (Auto) 0.3 Neut % (Auto) 40.1 L Lymph % (Auto) 47.6 H [place] % (Auto) 9.7 H Eos % (Auto) 1.9 Baso % (Auto) 0.4 Lymph # (Auto) 3.42 H [place] # (Auto) 0.7 H Eos # (Auto) 0.1 Baso # (Auto) 0.0 Abs Immat Gran (auto) 0.02 Absolute Neuts (auto) 2.9 Absolute Nucleated RBC 0.000 Nucleated RBC % 0.0 Sodium 136 L Potassium 3.5 Chloride 108 H Carbon Dioxide 23 Anion Gap 5 BUN 5 L D Creatinine 0.53 L Estim Creat Clear Calc 109 Estimated GFR > 60 Glucose 95 Calcium 8.7 Total Bilirubin 2.4 H AST 338 H ALT 681 H Alkaline Phosphatase 151 H Total Protein 6.5 Albumin 3.4 L Lipase 276
[2025-06-30 14:00] VITALS: BP 129/85; PULSE 85; RESP 16; TEMP 35.6; O2SAT 100
--- NOTE | 2025-06-30 14:44 | WPDGICN ---
Assessment and Plan Assessment and plan (1) Acute pancreatitis: Code(s): K85.90 - Acute pancreatitis without necrosis or infection, unspecified Status: Inactive Assessment and Plan: second episode of pancreatitis, noted sludge GB probably cause of pancreatitis, no alcohol mrcp findigns noted, no choledocholithiais, probably sequela chronic necrotic pancreatitis. She is feeling better, we can advance diet and see if will tolerate but she will need referral to tertiary center to get EUS pancreas and assess if indication of further intervention such as stenting (2) Right upper quadrant abdominal pain: Code(s): R10.11 - Right upper quadrant pain Status: Acute (3) Elevated liver enzymes: Code(s): R74.8 - Abnormal levels of other serum enzymes Status: Acute Assessment and Plan: monitor probably from pancreatitis (4) Gallbladder sludge: Code(s): K82.8 - Other specified diseases of gallbladder Status: Acute GI Consult Note Consult date/time: 06/30/25 14:44 Reason for consult: pancreatitis, abdominal pain HPI: Jennifer Viera is a 25 year old female with history of pancreatitis 1 year ago admitted for few days in [email or web address]], [facility]. Here with 1 week of diffuse upper abdominal pain radiating to her back. Patient also has associated nausea and vomiting with last episode of emesis few days ago. This is similar to previous presentation of pancreatitis 1 year ago. TG level normal. She denies any episodes in the interim. ER visit here 07/07/2024 CT scan demonstrated acute necrotic pancreatitis and small volume of pelvic ascites transferred to tertiary center. Patient states that she drinks socially and that she has not drank since 06/14. Abdominal ultrasound was obtained in the ED showed gallbladder sludge with no wall thickening or surrounding fluid. Normal WBC. Noted elevated liver enzymes. Lipase elevated at 301. Doing better. MRCP showed dilation of the proximal common bile duct without intrahepatic biliary ductal dilation as well as of the main pancreatic duct in the body and tail the pancreas. Both demonstrate abrupt transition to narrow ducts in the region of the head of the pancreas where there is a heterogeneous appearance to the head of the pancreas including a couple small nonenhancing cystic appearing regions which appears similar to study from 07/07/2024. These developed coincident with an episode of acute pancreatitis in the short interval since 04/18/2024 which would argue against malignancy and favor sequela of now chronic necrotic pancreatitis. No evident cholelithiasis/choledocholithiasis and the abrupt transition points likely reflect strictures related to the chronic pancreatitis. Mild edema surrounding the head of the pancreas suspicious for recurrent acute interstitial pancreatitis. Review of Systems Constitutional: Constitutional: Denies chills Eyes: Eyes: Denies blurry vision ENT: Reports Normal hearing present Cardiovascular: Cardiovascular: Denies chest pain Respiratory: Respiratory: Denies chest congestion Gastrointestinal: Gastrointestinal: Reports abdominal pain, Reports nausea and Reports vomiting Genitourinary: Genitourinary: Denies dysuria Musculoskeletal: Musculoskeletal: Denies neck pain Integumentary/Breasts: Skin/Breast: Denies rash Neurologic: Denies Abnormal speech present Psychiatric: Psychiatric: Denies behavioral changes [facility] Past Medical History Medical History (Updated 06/30/25 @ 14:51 by Paul Cox MD) Gallbladder sludge Elevated liver enzymes Hypertension Pancreatitis Surgical History Surgical History No significant past surgical history Family History Family History (Updated 06/29/25 @ 15:27 by Kisha Tsai RN) Father No problems noted. Mother , Complications related to pneumonia No problems noted. Grandparent Asthma Hypertension Social History Social History Smoking status: Never smoker Tobacco type: cigarettes Second hand tobacco smoke exposure: Yes Smoking end date: 04/12/20 Alcohol intake: current Drinks per week: 4 Substance use: never Lack of Transportation: No Lack of Food: Never True Current Housing: I Have Housing Concerned About Future Housing: No Difficulty Paying Gas/Electric Bills: No Difficulty Paying for Meds: No Currently Unemployed: No Education: Bachelor's Degree Difficulty w/ Childcare or Family Care: No Living arrangements: with family Occupation/Education: occupation Gender identity (if verbalized by the patient): Female Spiritual care concerns: No Meds Home Medications and Allergies Home Medications ?Medication ?Instructions ?Recorded ?Confirmed ?Type amlodipine 5 mg tablet 5 mg PO DAILY 30 days #30 tabs 04/18/24 06/29/25 Rx pantoprazole 40 mg tablet,delayed 40 mg PO HS 4 weeks #28 tabs 04/18/24 06/29/25 Rx release (Protonix) biotin .ROUTE 06/29/25 History cyanocobalamin (vitamin B-12) PO 06/29/25 History magnesium PO 06/29/25 History Allergies Allergy/AdvReac Type Severity Reaction Status Date / Time peanuts Allergy Mild Other Uncoded 06/29/25 20:02 Vital Signs Vital Signs - 24 hr 06/29/25 14:45 06/29/25 15:00 06/29/25 15:05 Temperature 97.7 F Pulse Rate 95 Respiratory Rate 16 Blood Pressure 134/85 Pulse Oximetry 99 99 Oxygen Delivery Room Air 06/29/25 20:32 06/30/25 05:06 06/30/25 05:20 Temperature 99.0 F 98.2 F Pulse Rate 105 H 78 Respiratory Rate 14 12 Blood Pressure 125/85 156/96 H 124/80 Pulse Oximetry 100 100 Oxygen Delivery 06/30/25 09:40 06/30/25 14:00 Temperature 96.1 F L Pulse Rate 85 Respiratory Rate 16 Blood Pressure 129/85 Pulse Oximetry 100 Oxygen Delivery Room Air Results Labs 06/30/25 05:04 06/30/25 05:04 Labs: Short CBC 06/30/25 Range/Units 05:04 WBC 7.2 (4.5-10.0) K/mm3 Hgb 9.9 L (12.0-15.0) g/dL Hct 29.3 L (37.0-47.0) % Plt Count 209 (150-375) k/mm3 [facility] 06/30/25 05:04 Sodium 136 L Potassium 3.5 Chloride 108 H Carbon Dioxide 23 BUN 5 L D Creatinine 0.53 L Glucose 95 Calcium 8.7 Liver Function 06/30/25 Range/Units 05:04 Total Bilirubin 2.4 H (0.2-1.3) mg/dL AST 338 H (14-36) U/L ALT 681 H (6-35) U/L Alkaline Phosphatase 151 H (38-126) U/L Albumin 3.4 L (3.5-5.1) g/dL
[2025-06-30 20:44] VITALS: BP 104/75; PULSE 97; RESP 16; TEMP 36.2; O2SAT 99
[2025-06-30] MEDS: HYDROcodone/acetaminophen (*CRX) 5-325 MG TABLET 1 TAB PO (20:56)
[2025-06-30 21:02] VITALS: PULSE 94; RESP 20; O2SAT 98
[2025-07-01] MEDS: ONDANSETRON INJ 4 MG/2 ML VIAL IV PUSH (02:59)
[2025-07-01] MEDS: HYDROcodone/acetaminophen (*CRX) 5-325 MG TABLET 1 TAB PO ×2 (02:59→14:30)
[2025-07-01 05:11] VITALS: BP 135/97; PULSE 65; RESP 16; TEMP 36.3; O2SAT 100
[2025-07-01] MEDS: SODIUM CHLORIDE 0.9% IV 1,000 ML 125 ML IV CONT (07:32)
--- NOTE | 2025-07-01 07:54 | P.PNIM_ITS ---
Progress Note: A&P Assessment and Plan (1) Right upper quadrant abdominal pain: Code(s): R10.11 - Right upper quadrant pain Status: Acute Assessment and Plan: -symptoms likely secondary to pancreatitis - MRCP showed Dilation of the proximal common bile duct without intrahepatic biliary ductal dilation as well as of the main pancreatic duct in the body and tail the pancreas. Both demonstrate abrupt transition to narrow ducts in the region of the head of the pancreas where there is a heterogeneous appearance to the head of the pancreas including a couple small nonenhancing cystic appearing regions which appears similar to study from 07/07/2024. These developed coincident with an episode of acute pancreatitis in the short interval since 04/18/2024 which would argue against malignancy and favor sequela of now chronic necrotic pancreatitis. No evident cholelithiasis/choledocholithiasis and the abrupt transition points likely reflect strictures related to the chronic pancreatitis. -abdominal ultrasound showed gallbladder sludge. - general surgery consulted, no surgical intervention planned inpatient. Follow- up outpatient to discuss possible CCY - GI consulted, recommended outpatient referral to tertiary center to consider stent - General surgery and GI have been consulted. No current leukocytosis or systemic symptoms concerning for acute cholecystitis. - transaminitis improving - IV fluids: 1L bolus -> 125 mL/hr-->75 ml/hr - analgesics/antiemetic prn - advanced to low fat diet - discussed with GI, plan to discharge in AM if continues to improve (2) Transaminitis: Code(s): R74.01 - Elevation of levels of liver transaminase levels Status: Acute Assessment and Plan: -gallbladder sludge noted on ultrasound and patient experiencing right upper quadrant pain which is suspicious for choledocholithiasis, but MRCP showed no stone -total bilirubin 3.6, AST 694, ALT 1009 - trending down -hepatitis panel negative -trend LFTs -IV fluids -06/30: AST/ALT 694/1009 -> 338/681 - GI followed, no need for ERCP. Referral for outpatient EUS. (3) Hypertension: Qualifiers: Hypertension type: primary hypertension Qualified Code(s): I10 - Essential (primary) hypertension Code(s): I10 - Essential (primary) hypertension Status: Resolved Assessment and Plan: -chronic/resolved, currently 131/97 -previously on amlodipine, no longer taking -monitor Plan Diet: low fat regular diet DVT Prophylaxis: SCDs Disposition: home tomorrow if continues to improve and tolerates regular diet Subjective Date/time seen: 07/01/25 07:54 Interval history: 25 yo female admitted for abdominal pain. Patient seen examined at bedside. Feeling much better today, nausea and pain have improved significantly. Patient hoping to advance to regular diet and hopefully discharge tomorrow. Review of Systems Review of Systems: All systems reviewed & are unremarkable except as noted in HPI and below Exam Narrative: General: NAD Eyes: EOMI ENT: neck supple Cardiovascular: Regular rate and rhythm Respiratory: Clear to auscultation, respirations even and unlabored on RA Gastrointestinal: Soft, non tender Genitourinary: no suprapubic tenderness Musculoskeletal: No edema Skin: warm, dry Neuro: Alert. Psych: Mood appropriate Objective Data Vital Signs Vital Signs: Vital Signs - 24 hr 06/30/25 09:40 06/30/25 14:00 06/30/25 20:00 Temperature 96.1 F L Pulse Rate 85 Respiratory Rate 16 Blood Pressure 129/85 Pulse Oximetry 100 Oxygen Delivery Room Air Room Air Fraction of Inspired Oxygen 06/30/25 20:44 06/30/25 21:02 07/01/25 05:11 Temperature 97.2 F L 97.4 F L Pulse Rate 97 94 65 Respiratory Rate 16 20 16 Blood Pressure 104/75 135/97 H Pulse Oximetry 99 98 100 Oxygen Delivery Room Air Fraction of Inspired Oxygen 21 Intake/Output Intake/Output: Intake & Output 06/28/25 06/29/25 06/30/25 07/01/25 23:59 23:59 23:59 23:59 Intake Total 2049 2519 1000 Balance 2049 2519 1000 Meds/Results Medications: Active Medications Generic Name Dose Route Start Last Admin Trade Name Freq PRN Reason Stop Dose Admin Acetaminophen 650 mg 06/29/25 13:12 Acetaminophen 325 Mg Tablet PO Q6H PRN Mild Pain (1-3) or Fever Hydrocodone Bitart/Acetaminophen 1 tab 06/29/25 13:12 07/01/25 02:59 Hydrocodone/Acetaminophen (*Crx) 5-325 Mg Tablet PO 1 tab Q6H PRN Administration Pain Rated 4-6 Sodium Chloride 1,000 mls @ 125 mls/hr 06/29/25 12:35 07/01/25 07:32 Normal Saline Iv IV CONT 125 mls/hr .Q8H ADRIANA Administration Morphine Sulfate 4 mg 06/29/25 12:32 06/30/25 09:47 Morphine Sulfate (*Crx) 4 Mg/Ml Inj IV PUSH 4 mg Q2H PRN Administration Pain Rated 7-10 Ondansetron HCl 4 mg 06/29/25 12:32 07/01/25 02:59 Ondansetron Inj 4 Mg/2 Ml Vial IV PUSH 4 mg Q4H PRN Administration Nausea Radiology Results: ITS Impressions Abdomen Ultrasound 06/29/25 10:26 IMPRESSION: Gallbladder sludge . MRCP 06/30/25 12:57 IMPRESSION: 1. Dilation of the proximal common bile duct without intrahepatic biliary ductal dilation as well as of the main pancreatic duct in the body and tail the pancreas. Both demonstrate abrupt transition to narrow ducts in the region of the head of the pancreas where there is a heterogeneous appearance to the head of the pancreas including a couple small nonenhancing cystic appearing regions which appears similar to study from 07/07/2024. These developed coincident with an episode of acute pancreatitis in the short interval since 04/18/2024 which would argue against malignancy and favor sequela of now chronic necrotic pancreatitis. No evident cholelithiasis/choledocholithiasis and the abrupt transition points likely reflect strictures related to the chronic pancreatitis. 2. Mild edema surrounding the head of the pancreas suspicious for recurrent acute interstitial pancreatitis. Quality VTE Prophylaxis VTE prophylaxis: mechanical ordered
[2025-07-01 08:33] LABS: Hematocrit 31.8 % (37.0-47.0); Hemoglobin 10.6 g/dL (12.0-15.0); Immature Granulocyte Percent A 0.3 % (0-0.5); Lymphocytes Absolute Auto 2.70 K/mm3 (0.9-3.2); Mean Corpuscular HGB Conc 33.3 g/dl (32-36); Mean Corpuscular Hemoglobin 32.0 pg (26-34); Mean Corpuscular Volume 96.1 fl (80-100); Nucleated Red Blood Cells Absolute Auto 0.000 K/mm3 (0.0-0.012); Nucleated Red Blood Cells Perc 0.0 % (0.0-0.2); Platelet Count Result 239 k/mm3 (150-375); Red Blood Count 3.31 M/mm3 (4.2-5.4); White Blood Count 6.6 K/mm3 (4.5-10.0)
[2025-07-01 08:56] LABS: Alanine Aminotransferase 550 U/L (6-35); Albumin Level 3.8 g/dL (3.5-5.1); Alkaline Phosphatase 142 U/L (38-126); Anion Gap 6 mmol/L (4-12); Aspartate Amino Transferase 209 U/L (14-36); Bilirubin,Total 1.8 mg/dL (0.2-1.3); Calcium 9.1 mg/dL (8.4-10.2); Carbon Dioxide 27 mmol/L (22-30); Chloride 104 mmol/L (98-107); Estimated CRCL calculation 107 ml/min; Estimated Glomerular Filt Rate > 60; Glucose 101 mg/dL (65-110); Potassium 3.4 mmol/L (3.4-5.0); Sodium 137 mmol/L (137-145); Total Protein 6.9 g/dL (6.3-8.2)
[2025-07-01 08:58] LABS: Blood Urea Nitrogen < 2 mg/dL (7-17)
[2025-07-01 14:00] VITALS: BP 112/72; PULSE 83; RESP 16; TEMP 35.9; O2SAT 100
--- NOTE | 2025-07-01 16:13 | P.PNGI_ITS ---
Progress Note: A&P Assessment and Plan (1) Acute on chronic pancreatitis: Code(s): K85.90 - Acute pancreatitis without necrosis or infection, unspecified; K86.1 - Other chronic pancreatitis Status: Acute Assessment and Plan: mrcp findings noted symptomatically much better will refer to [facility] for [facility] of pancreas as outpatient- she is tolerating diet and is comfortable. she saw GI at [facility] when had first episode of pancreatitis about 1 year ago (2) Right upper quadrant abdominal pain: Code(s): R10.11 - Right upper quadrant pain Status: Acute Assessment and Plan: resolved (3) Gallbladder sludge: Code(s): K82.8 - Other specified diseases of gallbladder Status: Acute Assessment and Plan: probably at some point will benefit from cholecystectomy because recurrent pancreatitis (4) Elevated liver enzymes: Code(s): R74.8 - Abnormal levels of other serum enzymes Status: Acute Subjective Date/time seen: 07/01/25 16:13 Interval history: pain almost gone and tolerating diet much better Review of Systems Review of Systems: All systems reviewed & are unremarkable except as noted in HPI and below Exam Const: General: comfortable and no acute distress HENMT: Face/Nose/Sinus: Normal nares present Eyes: General: appearance normal, both eyes and all related structures Neck: Neck: no JVD Resp: Auscultation: clear to auscultation bilaterally Cardio: Rate: regular rate Rhythm: regular rhythm GI: Inspection: non-distended GI Palp: Yes Soft to palpation Skin: General skin exam: normal color Neuro: General: gait normal Speech: normal speech Extrem: General: normal to inspection Psych: Mental Status: mental status grossly normal Objective Data Vital Signs Vital Signs: Vital Signs - 24 hr 06/30/25 20:00 06/30/25 20:44 06/30/25 21:02 Temperature 97.2 F L Pulse Rate 97 94 Respiratory Rate 16 20 Blood Pressure 104/75 Pulse Oximetry 99 98 Oxygen Delivery Room Air Room Air Fraction of Inspired Oxygen 21 07/01/25 05:11 07/01/25 08:00 07/01/25 14:00 Temperature 97.4 F L 96.7 F L Pulse Rate 65 83 Respiratory Rate 16 16 Blood Pressure 135/97 H 112/72 Pulse Oximetry 100 100 Oxygen Delivery Room Air Fraction of Inspired Oxygen Intake/Output Intake/Output: Intake & Output 06/28/25 06/29/25 06/30/25 07/01/25 23:59 23:59 23:59 23:59 Intake Total 2049 2519 3222.9 Balance 2049 2519 3222.9 Meds/Results Medications: Active Medications Generic Name Dose Route Start Last Admin Trade Name Freq PRN Reason Stop Dose Admin Acetaminophen 650 mg 06/29/25 13:12 Acetaminophen 325 Mg Tablet PO Q6H PRN Mild Pain (1-3) or Fever Hydrocodone Bitart/Acetaminophen 1 tab 06/29/25 13:12 07/01/25 14:30 Hydrocodone/Acetaminophen (*Crx) 5-325 Mg Tablet PO 1 tab Q6H PRN Administration Pain Rated 4-6 Sodium Chloride 1,000 mls @ 75 mls/hr 06/29/25 12:35 07/01/25 11:43 Normal Saline Iv IV CONT 75 mls/hr .[id number] ADRIANA Infusion Morphine Sulfate 4 mg 06/29/25 12:32 06/30/25 09:47 Morphine Sulfate (*Crx) 4 Mg/Ml Inj IV PUSH 4 mg Q2H PRN Administration Pain Rated 7-10 Ondansetron HCl 4 mg 06/29/25 12:32 07/01/25 02:59 Ondansetron Inj 4 Mg/2 Ml Vial IV PUSH 4 mg Q4H PRN Administration Nausea Radiology Results: ITS Impressions Abdomen Ultrasound 06/29/25 10:26 IMPRESSION: Gallbladder sludge . MRCP 06/30/25 12:57 IMPRESSION: 1. Dilation of the proximal common bile duct without intrahepatic biliary ductal dilation as well as of the main pancreatic duct in the body and tail the pancreas. Both demonstrate abrupt transition to narrow ducts in the region of the head of the pancreas where there is a heterogeneous appearance to the head of the pancreas including a couple small nonenhancing cystic appearing regions which appears similar to study from 07/07/2024. These developed coincident with an episode of acute pancreatitis in the short interval since 04/18/2024 which would argue against malignancy and favor sequela of now chronic necrotic pancreatitis. No evident cholelithiasis/choledocholithiasis and the abrupt transition points likely reflect strictures related to the chronic pancreatitis. 2. Mild edema surrounding the head of the pancreas suspicious for recurrent acute interstitial pancreatitis. Labs Labs: Laboratory Results - last 24 hr 07/01/25 08:16 WBC 6.6 RBC 3.31 L Hgb 10.6 L Hct 31.8 L MCV 96.1 MCH 32.0 MCHC 33.3 RDW 13.0 Plt Count 239 MPV 11.9 H Immature Gran % (Auto) 0.3 Neut % (Auto) 47.2 Lymph % (Auto) 40.8 [place] % (Auto) 8.9 H Eos % (Auto) 2.3 Baso % (Auto) 0.5 Lymph # (Auto) 2.70 [place] # (Auto) 0.6 Eos # (Auto) 0.2 Baso # (Auto) 0.0 Abs Immat Gran (auto) 0.02 Absolute Neuts (auto) 3.1 Absolute Nucleated RBC 0.000 Nucleated RBC % 0.0 Sodium 137 Potassium 3.4 Chloride 104 Carbon Dioxide 27 Anion Gap 6 BUN < 2 L Creatinine 0.54 L Estim Creat Clear Calc 107 Estimated GFR > 60 Glucose 101 Calcium 9.1 Total Bilirubin 1.8 H AST 209 H ALT 550 H Alkaline Phosphatase 142 H Total Protein 6.9 Albumin 3.8
[2025-07-01] MEDS: SODIUM CHLORIDE 0.9% IV 1,000 ML 75 ML IV CONT (20:51)
[2025-07-01 21:51] VITALS: BP 107/74; PULSE 83; RESP 16; TEMP 36.1; O2SAT 99
[2025-07-02 05:47] VITALS: BP 144/81; PULSE 72; RESP 13; TEMP 36.4; O2SAT 97
[2025-07-02 06:39] LABS: Alanine Aminotransferase 424 U/L (6-35); Albumin Level 3.8 g/dL (3.5-5.1); Alkaline Phosphatase 126 U/L (38-126); Anion Gap 8 mmol/L (4-12); Aspartate Amino Transferase 116 U/L (14-36); Bilirubin,Total 1.3 mg/dL (0.2-1.3); Blood Urea Nitrogen 3 mg/dL (7-17); Calcium 8.9 mg/dL (8.4-10.2); Carbon Dioxide 26 mmol/L (22-30); Chloride 103 mmol/L (98-107); Estimated CRCL calculation 113 ml/min; Estimated Glomerular Filt Rate > 60; Glucose 109 mg/dL (65-110); Potassium 3.2 mmol/L (3.4-5.0); Sodium 137 mmol/L (137-145); Total Protein 6.8 g/dL (6.3-8.2)
--- NOTE | 2025-07-02 07:50 | P.DS_ITS ---
DS: Admitting Diagnosis Discharge Date 07/02/25 Admitting Diagnosis - RUQ abdominal pain - Transaminitis - Hypertension DS: Discharge Diagnosis Discharge Diagnosis (1) Acute on chronic pancreatitis: Code(s): K85.90 - Acute pancreatitis without necrosis or infection, unspecified; K86.1 - Other chronic pancreatitis Status: Acute (2) Right upper quadrant abdominal pain: Code(s): R10.11 - Right upper quadrant pain Status: Acute (3) Transaminitis: Code(s): R74.01 - Elevation of levels of liver transaminase levels Status: Acute (4) Hypertension: Qualifiers: Hypertension type: primary hypertension Qualified Code(s): I10 - Essential (primary) hypertension Code(s): I10 - Essential (primary) hypertension Status: Resolved DS: Summary Hospital Course Reason for hospitalization: - RUQ abdominal pain - Transaminitis - Hypertension Hospital Course: Patient is 25 yo female with PMH pancreatitis, hypertension who presented to the emergency department with complaints of epigastric abdominal pain. ED workup showed: No leukocytosis, no anemia, normal coags, sodium 136, potassium 3.3, glucose 126, creatinine 0.73 and GFR >60, total bilirubin 3.6, AST 694, ALT 1009, alk-phos 231, and lipase 301. UA suspicious for UTI, however does have occasional epithelial cells. Hepatitis panel negative. test negative. Abdominal ultrasound showed gallbladder sludge. MRCP pending. Patient was admitted for further evaluation and management of suspected pancreatitis vs. choledocholithiasis. Upon admission, General surgery was consulted due to gallbladder sludge and recurrent pancreatitis. Did not recommend any surgical intervention as an inpatient and recommended outpatient follow-up. MRCP was ordered which showed dilation of the proximal common bile duct without intrahepatic biliary ductal dilation as well as of the main pancreatic duct in the body and tail the pancreas. Both demonstrate abrupt transition to narrow ducts in the region of the head of the pancreas where there is a heterogeneous appearance to the head of the pancreas including a couple small nonenhancing cystic appearing regions which appears similar to study from 07/07/2024. These developed coincident with an episode of acute pancreatitis in the short interval since 04/18/2024 which would argue against malignancy and favor sequela of now chronic necrotic pancreatitis. No evident cholelithiasis/choledocholithiasis and the abrupt transition points likely reflect strictures related to the chronic pancreatitis. GI followed, recommended outpatient consultation with tertiary center GI to discuss EUS and possible pancreatic duct stenting. Patient has previously followed with [facility] and wishes to follow-up there. GI cleared for discharge Patient was started on IV fluids and treated with IV analgesics and pain resolved. Liver enzymes trended down. She was given potassium supplement. She was tolerating a regular diet on discharge. Patient was encouraged to follow up with her PCP and obtain repeat CMP in 1 week. Patient discharged home in stable condition. Status at Discharge Functional status at discharge: independent ambulation Overall status at discharge: patient is back to baseline Time Spent with Patient Time attestation: Total time spent providing and/or coordinating discharge services: Time spent: Greater than 30 minutes Exam Narrative: General: NAD Eyes: EOMI ENT: neck supple Cardiovascular: Regular rate and rhythm Respiratory: Clear to auscultation, respirations even and unlabored on RA Gastrointestinal: Soft, non tender Genitourinary: no suprapubic tenderness Musculoskeletal: No edema Skin: warm, dry Neuro: Alert. Psych: Mood appropriate DS: Data Data Completed and Pending Completed studies during hospitalization: - abdominal US - MRCP Labs on day of discharge: Labs from last 24 hours 07/02/25 07/01/25 04:50 08:16 WBC 6.6 RBC 3.31 L Hgb 10.6 L Hct 31.8 L MCV 96.1 MCH 32.0 MCHC 33.3 RDW 13.0 Plt Count 239 MPV 11.9 H Immature Gran % (Auto) 0.3 Neut % (Auto) 47.2 Lymph % (Auto) 40.8 [place] % (Auto) 8.9 H Eos % (Auto) 2.3 Baso % (Auto) 0.5 Lymph # (Auto) 2.70 [place] # (Auto) 0.6 Eos # (Auto) 0.2 Baso # (Auto) 0.0 Abs Immat Gran (auto) 0.02 Absolute Neuts (auto) 3.1 Absolute Nucleated RBC 0.000 Nucleated RBC % 0.0 Sodium 137 137 Potassium 3.2 L 3.4 Chloride 103 104 Carbon Dioxide 26 27 Anion Gap 8 6 BUN 3 L < 2 L Creatinine 0.51 L 0.54 L Estim Creat Clear Calc 113 107 Estimated GFR > 60 > 60 Glucose 109 101 Calcium 8.9 9.1 Total Bilirubin 1.3 1.8 H AST 116 H 209 H ALT 424 H 550 H Alkaline Phosphatase 126 142 H Total Protein 6.8 6.9 Albumin 3.8 3.8 Discharge Plan Discharge Attending physician on discharge: Abel Julio Consulting providers: Paul Cox; Lisa Haque; Hemal Bowman; Amber Zamudio Discharging Clinician: Amber Zamudio Anticipated Discharge Date/Time: 07/02/25 13:16 Patient Disposition: Home Activity: as tolerated Diet: as tolerated Discharge Instructions: Take all medications as prescribed. Have your lab work repeated in 1 week to check potassium level and liver enzym es. Follow-up with your primary care provider in one week. Avoid all alcohol. Follow-up with [facility] to discuss possible need for stenting in the pancreatic duct. Follow-up with general surgery to discuss gallbladder removal surgery. Return to the emergency department if you develop chest pain, shortness of breath, persistent fever >100.4, confusion, loss of consciousness. Patient Instructions: Pancreatitis (DC) Patient Language: Stateless Stand Alone Forms: General Discharge Information, Work/School Release IP Follow-up/Referrals: Lisa Haque MD [Physician, General Surgery] - 4 Weeks Jacqueline,Krzysztof Sloan MD [Primary Care Provider, Unknown] - Call for Appointment Referral Note: 1 week Discharge Medications: New hydrocodone-acetaminophen 5-325 mg Tablet 1 tablet PO Q6H PRN (Reason: pain) 3 Days Qty: 12 0RF Continued pantoprazole [Protonix] 40 mg tablet,delayed release (DR/EC) 40 mg PO HS 28 Days Qty: 28 0RF biotin .ROUTE cyanocobalamin (vitamin B-12) PO magnesium PO Discontinued amlodipine 5 mg tablet 5 mg PO DAILY 30 Days Qty: 30 0RF Other Ambulatory Orders: Comprehensive Metabolic Panel (Routine) Timeframe: 1 Week Location: Determined by Patient Ordered By: Amber Zamudio Date of admission: 06/29/25 14:47 Primary Care Provider: Jacqueline,Krzysztof Sloan Admitting Provider: Mohan Baker Attending physician on admission: Mohan Baker Condition: Stable
[2025-07-02] MEDS: POTASSIUM CHLORIDE 20 MEQ PACKET (FOR LIQUID) 40 MEQ PO (08:25)
[2025-07-02] MEDS: HYDROcodone/acetaminophen (*CRX) 5-325 MG TABLET 1 TAB PO (09:39)
== END 2025-07-02 14:50 | disposition home or self-care (01) ==
LOC: ANHED 12:55 → ANH3MEDSUR 16:55
PROVIDERS: Physician Assistant; Admitting Provider General Practice; Emergency Provider General Practice; PCP Family Medicine; Visit Provider Internal Medicine
DX: K85.90 Acute pancreatitis without necrosis or infection, unspecified (principal); R10.11 Right upper quadrant pain; R74.01 Elevation of levels of liver transaminase levels; K82.8 Other specified diseases of gallbladder; N30.00 Acute cystitis without hematuria; K86.1 Other chronic pancreatitis; I10 Essential (primary) hypertension; R74.8 Abnormal levels of other serum enzymes; Z87.891 Personal history of nicotine dependence
CPT/HCPCS: 36415; 74183; 76376; 76705; 80053; 80074; 81001; 81025; 83605; 83690; 85025; 85610; 85730; 87086; 96361; 96365; 96375; 96376; 99285; A9270; A9577; G0378; J0696; J2270; J2405; J7030